=== PATIENT | male | born 1945 | race Caucasian/White ===

== ENCOUNTER 2019-11-16 22:36 | Inpatient (IN) | payer MEDICARE, OTHER, SELFPAY ==
[2019-11-16 22:36] VITALS: BP 134/79; PULSE 63; RESP 24; TEMP 36.4; O2SAT 92; BMI 30.3
[2019-11-16 22:39] VITALS: BP 147/68; PULSE 63; RESP 13; TEMP 36.4; O2SAT 90
--- NOTE | 2019-11-16 22:40 | CT_ITS ---
We are attempting to reach an attending provider to discuss findings. An addendum with communication details will be sent when the communication is complete. HISTORY: nonverbal x 1 hour, pt has been confused and hallucinations x 2 days per [facility] ADDITIONAL HISTORY: None provided. COMPARISON: None TECHNIQUE: Axial, coronal and sagittal CT images were obtained of the brain without intravenous contrast. Number of images including paperwork: 272. A radiation dose optimization technique was used for this scan. FINDINGS: BRAIN: No acute hemorrhage or mass. No definite acute infarct; MRI more sensitive. White matter hypodensity is nonspecific but most commonly seen with chronic ischemic changes. Generalized atrophy. VENTRICULAR SYSTEM: No hydrocephalus. PARANASAL SINUSES AND MASTOIDS: Mild mucosal thickening. Complete opacification of the left maxillary sinus. Some fluid is noted in the left mastoid air cells without destructive changes. ORBITS: Unremarkable imaged extent. SKELETON AND SOFT TISSUES: Calvarium intact. ASPECTS score: Not applicable. CT/Brain/Head without Contrast IMPRESSION: No acute intracranial abnormality. Chronic involutional and white matter changes. Individualized dose optimization techniques were used for this CT. at 2300 Reported and signed by: Kelsey Walter MD Electronically Signed: Kelsey Walter MD at 23:00 EDT Tel , Service support ,
[2019-11-16 22:54] VITALS: BP 134/79; PULSE 58; RESP 23; TEMP 36.4; O2SAT 95
[2019-11-16 22:59] VITALS: BMI 30.3
--- NOTE | 2019-11-16 23:10 | RAD_ITS ---
HISTORY: pt having increased confusion, hallucinations, weakness. jail noticed 2 days ago.sob ADDITIONAL HISTORY: None provided. TECHNIQUE: Frontal chest radiograph. Number of images including paperwork: 2 COMPARISON: None FINDINGS: LUNGS AND PLEURA: Hazy bilateral opacities with blunting of the costophrenic angle. CARDIAC SILHOUETTE: Moderately enlarged. MEDIASTINUM AND STEFAN: Aortic calcification and tortuosity. UPPER ABDOMEN: Unremarkable. SKELETON AND SOFT TISSUES: No acute findings. Degenerative changes. OTHER DEVICES AND HARDWARE: Sternal wires and surgical clips. RAD/Chest 1 View (Portable) IMPRESSION: Bilateral pleural effusions. Bilateral pulmonary opacities may be related to asymmetric edema, pneumonia and/or atelectasis. at 0010 Reported and signed by: Kelsey Walter MD Electronically Signed: Kelsey Walter MD at 0:10 EDT Tel , Service support ,
--- NOTE | 2019-11-16 23:10 | EKG12_ITS ---
Test Reason : DYSRHYTHMIA Blood Pressure : / mmHG Vent. Rate : 057 BPM Atrial Rate : 057 BPM P-R Int : 168 ms QRS Dur : 106 ms QT Int : 472 ms P-R-T Axes : 045 -07 079 degrees QTc Int : 459 ms Sinus bradycardia with Premature supraventricular complexes Nonspecific ST abnormality Abnormal ECG Confirmed by FAUSTO BALDWIN, MARTHA ([id number]), graphics editor JESUS YIN ([id number]) on 11/18/2019 10:05:02 AM Referred By: AUGUSTIN Confirmed By:MARTHA LAMBERT MD
--- NOTE | 2019-11-16 23:12 | ED.DCSUM_ITS ---
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 stated he woke up from his sleep this evening and the snf noted that he was significantly altered and unable to have a conversation. EMS stated the patient could answer yes and no and nod and shake his head but did not want to do much otherwise. They stated he barely flinch when they placed his IV. He has a history of atrial fibrillation. He is not on a blood thinner at this time. Initial stroke team was called prior to EMS coming in for reported a aphasia. It is actually not a aphasia but the patient has confusion and altered mental status. Stated she is unsure but does not think there is any coronavirus exposure at the snf. She denies any fevers. Patient has initially coughed a couple times during initial evaluation. Patient is unable to give a history due to his mental status. Past Medical History - Allergies and Home Meds Allergies/Adverse Reactions: Allergies No Known Allergies Allergy (Verified 11/16/19 22:55) Prior records reviewed: Yes Past Medical History: - - Atrial fibrillation Surgical History: - - Knee surgery Lives: [facility] Smoking Status: Unknown if ever smoked Alcohol: None Drugs: None - Family History Maternal Family History: Reports: Heart Disease Paternal Family History: Reports: - - Per patient's , patient father lived to be 96. Review of Systems ROS: Unable to Obtain - Unable to obtain secondary to patient's mental status Physical Exam Vital Signs/Narrative: Vital Signs Temp Pulse Resp BP Pulse Ox 11/16/19 22:54 97.6 F L 58 L 23 H 134/79 H 95 11/16/19 22:39 97.5 F L 63 13 147/68 H 90 11/16/19 22:36 97.6 F L 63 24 H 134/79 H 92 Inital Vital Signs reviewed: Yes - Fever General: - - Patient is laying in bed with a nonrebreather mask. He can nod and shake his head and follow commands. He cannot talk words Head: Normocephalic, Atraumatic Eyes: Perrl, EOMI, - - 4 to 3 mm bilateral ENT: No rhinorrhea, TM's clear, Dry mucous membranes. Negative for: Moist mucous membranes, Nasal congestion Neck: Supple, Nontender Cardiovascular: Regular rate, Regular rhythm, No murmurs Respiratory: CTA bilaterally, Chest nontender, - - Patient bringing breathing into a nonrebreather. Negative for: No distress, Rales, Rhonchi, Wheezing, Re tractions Abdomen: Soft, Nontender, Nondistended, Normal bowel sounds. Negative for: Guarding Back: Nontender, Normal Inspection Extremities: Nontender, Edema - 2+ lower extremity edema bilateral which EMS reports that the snf stated is chronic, - - Patient able to lift his bilateral arms but weak. Bilateral paperhanger assistant strength noted. Sometimes he will comply sometimes he does not. Patient able to move his right lower extremity and lifted off the bed for a few seconds and then falls. Patient able to push down with his toes and pull back his toes with his left foot. Patient unable to lift his left leg.. Negative for: No edema Skin: Normal color, No rash Neurological: Alert, Normal DTR, Confused, Disoriented, Inattentive, Lethargic. Negative for: Oriented x3, Cranial nerves II-XII grossly intact, Normal Strength, Normal Sensation, Left side facial droop, Right side facial droop Psychological: Normal affect, Normal Mood Diagnostic/Tx/Re-eval - Medical Decision Making Patient initial evaluation. He is able to move all his extremities. He is able to squeeze my hands. He is able to answer my questions with yes or no. Work stated he is a DNR Comfort Care arrest. He stated he would not want to be intubated when I asked him. His reiterated that he would not want to be put on a breathing machine. Pulse ox is in the mid 90s on a nonrebreather. He has not mild cough in the room. He appears incredibly weak. I do not appreciate any focal neurologic deficits. He is able to smile. He is able to close his eyes. He just cannot have a conversation with me secondary to an inability to do so. He tries to talk and is able to say yes and no. His mouth is very dry. Patient's initial CAT scan upon arrival shows nothing acute. Lab work and chest x-ray obtained. Lab work shows no leukocytosis but no neutrophilia. Chronic anemia noted. Electrolytes show a mild increase in his sodium. Creatinine is normal. Lactate is normal. Urinalysis shows no evidence of infection. This was done with a Guaman catheter. Chest x-ray shows bilateral asymmetric infiltrates. I feel this may be COVID related. Patient given ceftriaxone and azithromycin for possible bilateral pneumonia. However she reported no history of cough or breathing difficulty. The patient may have encephalitis secondary to COVID. Also given a dose of Lasix IV as this could be CHF related. However I have more suspicion due to the asymptomatic asymmetry that this is COVID. Opponent is negative. EKG shows atrial fibrillation at a rate of 57. Patient was transferred to the [facility]. He remains his saturations in the mid 90s. Discussed with the hospitalist. Patient will be admitted for further evaluation and treatment of the above. Discussed with [facility] who also authorized the COVID test. I have a low suspicion for acute stroke. However the patient does have diffuse weakness worse in the left lower extremity. Patient is on Eliquis not a candidate for TPA as we do not know the time window as well. - Critical Care Time Critical care time (excluding procedures): 30-74 minutes ED Disposition - Plan for ED Patient: Disposition: Acute Care Hospital [facility] Diagnosis: Lethargy, Bilateral pulmonary infiltrates on chest x-ray, Suspected COVID-19 virus infection, Respiratory failure, Lower extremity weakness
[2019-11-16 23:17] VITALS: BP 141/85; PULSE 66; RESP 19; O2SAT 98
[2019-11-16 23:21] VITALS: BP 141/85; PULSE 65; RESP 25; TEMP 36.6; O2SAT 98
--- NOTE | 2019-11-16 23:23 | NURSING ---
after arriaza insertion
[2019-11-16 23:32] LABS: Bacteria 0 SEEN /hpf (None Seen); Mucous, Urine 0 SEEN /hpf (<or=2+); White Blood Cells 0 SEEN /hpf (0-5)
[2019-11-16 23:36] LABS: Color, Urine Yellow (Yellow); Glucose, Dipstick Normal (Normal); Ketone-Dipstick 5 mg/dl (Negative); Leukocyte Esterase-Dipstick Negative /ul (Negative); Nitrite-Dipstick Negative (Negative); Occult Blood-Urine 150 /ul (Negative); Protein-Dipstick 15 mg/dl (Negative); Specific Gravity, Urine 1.015 (1.002-1.030); Urine Bilirubin Dipstick Negative (Negative); Urine Clarity Sl. Cloudy (Clear); Urine Urobilinogen 1 mg/dl (Normal)
[2019-11-16 23:42] VITALS: TEMP 36.9
[2019-11-16 23:44] LABS: Red Blood Cells-Urine 25-50 SEEN /hpf (0-5); Squamous Epithelial Cells - UA 0-5 SEEN /hpf (0-5)
[2019-11-16 23:50] LABS: Absolute Neutrophil Count 5.8 X10^3/uL (2.0-7.7); Basophil# 0.03 X10^3/uL; Basophil% 0.4 % (0-1); Eosinophil# 0.05 X10^3/uL; Eosinophils% 0.7 % (0-5); Hematocrit 30.7 % (40-54); Hemoglobin 9.5 g/dL (13.0-16.5); Mean Corp Hgb Conc 30.9 g/dL (32-36); Mean Corpuscular Volume 96.8 fL (80-94); Mean Platelet Vol. 9.8 fl (6.2-12.0); Monocyte# 0.63 X10^3/uL; Monocyte% 8.9 % (0-10); NRBC Flagged by Analyzer 0 % (0-5); Neutrophil # 5.78 X10^3/uL (2.7-7.7); Neutrophil % 81.5 % (47-70); POSITIVE DIFFERENTIAL YES; Platelet Count 239 K/mm3 (150-450); RBC Distribution Width CV 14.9 % (11.6-14.6); RBC Distribution Width SD 52.8 fl (35.1-43.9); Red Blood Count 3.17 M/mm3 (4.6-6.2); White Blood Count 7.1 K/mm3 (4.4-11.0)
[2019-11-16 23:56] LABS: Differential Indicated SCAN CRITERIA MET
[2019-11-16 23:59] LABS: International Normalized Ratio 1.4; Prothrombin Time (Protime)PT. 16.9 SECONDS (11.7-14.9)
[2019-11-17] VITALS (21 sets, daily range): BP systolic 109–164; BP diastolic 61–98; PULSE 40–96; RESP 15–25; TEMP 36.4–37; O2SAT 94–99; BMI 29.7
[2019-11-17] LABS: Partial Thromboplast Time 39.8 Seconds (24.1-36.2)
[2019-11-17 00:03] LABS: Lactic Acid 0.8 mmol/L (0.4-1.9)
--- NOTE | 2019-11-17 00:11 | NURSING ---
stroke alert cancelled by
[2019-11-17 00:13] LABS: ALB/GLOB Ratio 0.7 RATIO (0.9-2.4); AST(SGOT) 28 U/L (15-37); Alanine Aminotransfer ALT/SGPT 17 U/L (16-61); Albumin, Serum 2.6 g/dL (3.2-5.0); Alkaline Phosphatase 62 U/L (45-117); Anion Gap 7 (5-15); BUN 29 mg/dL (7-18); BUN/Creat Ratio 24.4 RATIO (10-20); Calcium,Total 8.2 mg/dL (8.5-10.1); Chloride 114 mmol/L (98-107); Creatinine, Serum 1.19 mg/dL (0.70-1.30); EST Glomerular Filtration Rate 63 mL/min (>60); Est Glom Filt Rate - Afr Amer 76 mL/min (>60); Estimated Creatinine Clearance 56.25 ml/min; Globulin 3.6 g/dL (2.2-4.2); Glucose 76 mg/dL (74-106); Potassium 3.8 mmol/L (3.5-5.1); Protein, Total 6.2 g/dL (6.4-8.2); Sodium Level 147 mmol/L (136-145)
[2019-11-17 00:23] LABS: Platelet Estimate ADEQUATE (ADEQ)
[2019-11-17 00:24] LABS: Hypochromasia 1+
--- NOTE | 2019-11-17 00:26 | PCM.HP.STD ---
Problem List (1) Acute encephalopathy Status: Acute (2) Bilateral pulmonary infiltrates on chest x-ray Status: Acute (3) Lethargy Status: Acute (4) Respiratory failure Status: Acute (5) Suspected COVID-19 virus infection Status: Acute History of Present Illness Date of Admission: 11/17/19 Chief Complaint: Lethargy The patient is a 74 year old M with a significant history of Heart failure, CAD status post quadruple bypass who lives in a prison presenting because of lethargy that started on the same day of presentation. Associated with his symptoms is progressively worsening hallucinations. Reportedly patient had been 'seeing' snakes. His hallucinations started around June in 2018. Patient was brought from an [facility] prison. He was brought to [facility] because paramedics thought the patient was having a stroke. Stroke alert was called but later canceled by emergency department doctor as emergent department doctor could not see any focal deficits. Chest x-ray showed bilateral pulmonary opacity and bilateral pleural effusion raising suspicion for COVID-19 and for which reason COVID-19 test was ordered at the emergency department. Reportedly at a prison his oxygen saturation was 80% on room air but he responded to nonrebreather mask. At the emergency department patient required a Venturi mask to maintain appropriate oxygen saturation. History was taken from Emergency department doctor and patient's (over the phone) since patient was obtunded. Past Medical History Medical History: Medical History (Last Updated 11/17/19 @ 03:[address] Yandel Osborne MD) Atrial fibrillation I48.91 Systolic heart failure I50.20 Allergies No Known Allergies Allergy (Verified 11/16/19 22:55) Home Medications: Ambulatory Orders Medication Instructions Recorded Aripiprazole [Abilify] 5 mg PO DAILY 11/16/19 Ascorbic Acid 500 mg PO DAILY 11/16/19 Aspirin [Aspirin, Baby] 81 mg PO DAILY@0800 11/16/19 Carvedilol [Coreg] 12.5 mg PO BID 11/16/19 Fenofibrate 67 mg PO DAILY 11/16/19 Ferrous Sulfate 325 mg PO DAILY 11/16/19 Furosemide 40 mg PO DAILY 11/16/19 Glimepiride 1 mg PO DAILY 11/16/19 Levothyroxine [Synthroid] 75 mcg PO DAILY 11/16/19 Lisinopril [Zestril] 10 mg PO DAILY 11/16/19 Loratadine/Pseudoephedrine 1 ea PO PRN PRN 11/16/19 [Claritin-D 24 Hour Tablet] Magnesium l-Lactate [Magnesium 84 mg PO 4X/DAY 11/16/19 l-Lactate Dihyd Sr] Multivitamin [Once Daily] 1 ea PO DAILY 11/16/19 Niacin 1,000 mg PO DAILY 11/16/19 Oxybutynin Chloride 40 mg PO DAILY 11/16/19 Potassium Chloride 40 meq PO BID 11/16/19 Rivaroxaban [Xarelto] 15 mg PO DAILY 11/16/19 Sennosides/Docusate Sodium [Senna 1 ea PO BID 11/16/19 Plus Tablet] Sertraline HCl [Zoloft] 100 mg PO DAILY 11/16/19 Sotalol HCl [Sotalol] 80 mg PO BID 11/16/19 Tramadol HCl 50 mg PO Q6H PRN PRN 11/16/19 hydrALAZINE [Apresoline] 100 mg PO BID 11/16/19 Surgical History: coronary bypass surgery, - - Knee surgery Lives: Skilled Nursing Smoking Status: Former smoker Alcohol: Occasional Drugs: None - *Family History Maternal History Items: Heart Disease Paternal History Items: - - Per patient's , patient father lived to be 96. Review of Systems Unable to obtain accurate/complete ROS d/t: Obtunded. Information obtained from is as in HPI. VTE Information - Inpt Only VTE Present on Admission: No VTE Mechan Device Prophylaxis: None VTE Pharm Prophylaxis ordered?: No Reason prophylaxis not ordered:: Treatment Not Indicated - On Xarelto at home for A. fib. Patient has been started on Lovenox for A. fib. Patient Problems: Active and Suspected Problems (Last Updated 11/17/19 @ 03:[address] Yandel Osborne MD) Lethargy (Acute) Bilateral pulmonary infiltrates on chest x-ray (Acute) Suspected COVID-19 virus infection (Acute) Respiratory failure (Acute) Acute encephalopathy (Acute) Lower extremity weakness (Acute) - Physical Exam Vitals/I&O's: Vital Signs Temp Pulse Resp BP Pulse Ox 98.5 F 66 23 H 164/80 H 98 11/17/19 00:03 11/17/19 00:03 11/17/19 00:03 11/17/19 00:03 11/17/19 00:03 Oxygen Flow Rate (L/min) 8 Oxygen Delivery Method Venturi Mask Weight: 98.7 kg Body Mass Index (BMI) 30.3 Finger Stick Blood Glucose 70 Intake and Output for Last 24 Hours 11/15/19 11/16/19 11/17/19 23:59 23:59 23:59 Output Total Balance - General: - - Obtunded HEENT: Atraumatic, Normocephalic Neck: Supple Lungs: Diminished Cardiovascular: Normal S1, Normal S2, No murmurs, Bradycardic Abdomen: Bowel Sounds Present, Soft, Non Tender Extremities: Edema - Nonpitting edema of bilateral forearms. Skin: No rashes, No breakdown Musculoskeletal: No Tenderness to Palpation of Joints or Extremities Neurological: - - Not following commands to raise left lower extremities fully. Strength in all other extremities is 5 out of 5. Unable to evaluate strength in left lower extremities. Psych/Mental Status: - - Obtunded Laboratory Results 11/16/19 23:17: Urine Color Yellow, Urine Clarity Sl. Cloudy, Urine pH 6.0, Ur Specific [place] 1.015, Urine Protein 15 H, Urine Glucose (UA) Normal, Urine Ketones 5 H, Urine Occult Blood 150 H, Urine Nitrite Negative, Urine Bilirubin Negative, Urine Urobilinogen 1 H, Ur Leukocyte Esterase Negative, Urine RBC 25-50 SEEN, Urine WBC 0 SEEN, Ur Squamous Epith Cells 0-5 SEEN, Urine Bacteria 0 SEEN, Urine Mucus 0 SEEN 11/16/19 23:30: Sodium 147 H, Potassium 3.8, Chloride 114 H, Carbon Dioxide 26.0, Anion Gap 7, BUN 29 H, Creatinine 1.19, Estim Creat Clear Calc 56.25, Est GFR (MDRD) Af Amer 76, Est GFR (MDRD) Non-Af 63, BUN/Creatinine Ratio 24.4 H, Glucose 76, Calcium 8.2 L, Total Bilirubin 0.60, AST 28, ALT 17, Alkaline Phosphatase 62, Troponin I 0.030, Total Protein 6.2 L, Albumin 2.6 L, Globulin 3.6, Albumin/Globulin Ratio 0.7 L 11/16/19 23:30: WBC 7.1, RBC 3.17 L, Hgb 9.5 L, Hct 30.7 L, MCV 96.8 H, MCH 30.0, MCHC 30.9 L, RDW Std Deviation 52.8 H, RDW Coeff of [place] 14.9 H, Plt Count 239, MPV 9.8, Immature Gran % (Auto) 1.500 H, Neut % (Auto) 81.5 H, Lymph % (Auto) 7.0 L, [place] % (Auto) 8.9, Eos % (Auto) 0.7, Baso % (Auto) 0.4, Absolute Neuts (auto) 5.8, Absolute Lymphs (auto) 0.50 L, Nucleated RBC % 0, Differential Comment COMMENT, Platelet Estimate ADEQUATE, Hypochromasia 1+ 11/16/19 23:30: PT 16.9 H, INR 1.4, APTT 39.8 H 11/16/19 23:30: Lactic Acid 0.8 11/16/19 23:35: COVID-19 (AFUA) Pending 11/17/19 00:00: B-Natriuretic Peptide Pending Assessment/Plan All Active Problems (Last Updated 11/17/19 @ 03:[address] Yandel Osborne MD) Lethargy (Acute) Bilateral pulmonary infiltrates on chest x-ray (Acute) Suspected COVID-19 virus infection (Acute) Respiratory failure (Acute) Acute encephalopathy (Acute) Lower extremity weakness (Acute) The patient is a 74 year old M with a significant history of Heart failure, CAD status post quadruple bypass who lives in a prison presenting because of lethargy and progressively worsening hallucination and found to have bilateral pulmonary infiltrates. Acute encephalopathy Etiology unclear. We will get vitamin B12 level; TSH and RPR. Per Emergent department doctor patient was answering yes or no questions. At the time of my examination patient was not answering questions. Followed commands of raising all extremities. However he was not raising his left lower leg upon multiple commands. CT of his head showed chronic involutional and white matter changes. We will get MRI of his brain. In the meantime will give him aspirin by rectal route. We will check lipid levels. Placed on telemetry. Physical therapy, occupational therapy and speech therapy to evaluate and treat. NIH per stroke protocol. Permissive hypertension with labetalol and hydralazine to maintain blood pressure 220/120. Bilateral infiltrates BNP was elevated at 889.2.. Received Lasix IV push at emergency department. At home patient gets p.o. Lasix. We will continue patient on Lasix 40 mg IV twice daily. Supplement with potassium. Noted bandemia of 1.5%. Was given azithromycin at emergency department. Azithromycin continued. Trend CBC and BMP. Follow blood cultures. Strep pneumonia antigen and Legionella urine antigen ordered. MRSA nasal screen. COVID-19 suspicion Compress respiratory pathogen panel and COVID-19 was ordered at emergency department. Follow. Covid precautions. Reportedly at a prison where patient lives there are no cases of COVID -19 and the prison is on lock-down History of atrial fibrillation On home Xarelto. Hold all oral medications. Will start patient on therapeutic dose of Lovenox. Sotalol on hold at this time. Patient is in sinus bradycardia. History of systolic heart failure No echocardiogram on file. Coreg, lisinopril on hold secondary to n.p.o. status; and permissive hypertension. CAD status post CABG Rectal aspirin as above. Coreg, and lisinopril held as above. Anticoagulation as above. History of diabetes mellitus On home glimepiride. On presentation his blood glucose was in the 70s. Hold glimepiride. Check Accu-Chek every 4 hours. Put on D5 in half-normal saline with potassium. Microscopic hematuria. Probable traumatic from Guaman insertion at emergency department. Due to goals of care no further intervention may be necessary at this time. DVT prophylaxis Not indicated since patient has been started on therapeutic dose of Lovenox for history of A. fib. CODE STATUS: Discussed with . Patient will be a DNR CCA with no chest compressions and no intubation. Prognosis is grim. Inpatient E&M: [id number] Init Hosp L3
[2019-11-17] MEDS: Furosemide 40 MG/4 ML Vial IV ×3 (00:35→17:03)
[2019-11-17 00:36] LABS: Bedside Glucose 70 mg/dL (70-110)
--- NOTE | 2019-11-17 00:36 | ED.RN ---
THIS RN SPOKE WITH CLINT FROM [facility] AND GAVE THAT CAREGIVER UPDATE THAT PATIENT WOULD BE ADMITTED TO OUR FACILITY.
[2019-11-17 00:41] LABS: Bedside Glucose 77 mg/dL (70-110)
[2019-11-17] MEDS: Ceftriaxone 1 GM/50 ML BAG IV ×2 (00:52→02:38)
[2019-11-17 01:08] LABS: BNP,B-Type NATRIURETIC PEPTIDE 889.2 pg/mL (0-100)
--- NOTE | 2019-11-17 01:48 | MRI_ITS ---
STUDY: MRI BRAIN WITHOUT CONTRAST REASON FOR EXAM: Male, 74 years old. CVA -- lethargic, respiratory failure, suspected covid TECHNIQUE: Standardized multiplanar fat and water weighted pulse sequences were obtained. COMPARISON: CT head without contrast 11/16/2019. FINDINGS: No restricted diffusion to suspect acute or subacute ischemic infarct. Normal size of the ventricles and extra-axial spaces for the patient''s age. Old lacunar cystic infarct in the right periventricular white matter. Old lacunar cystic infarct in the right caudate head nucleus. No midline shift and no mass effects. Normal remaining basal ganglia. Normal thalami. There is no extra-axial fluid accumulation. Normal flow voids within the major intracranial circulation suggesting patency by spin echo criteria. Normal sella turcica, pituitary gland, infundibular stalk, optic chiasm and hypothalamus. Normal tectal plate and pineal gland. Normal midbrain, ceci and medulla. Normal cerebellum. Normal basal cisterns. Normal bilateral temporal bones. Normal bilateral internal auditory canals. No demonstrated orbital abnormality, within the constraints of a routine brain study. Completely opacified left mastoid sinus from chronic sinusitis. Normal calvarium and skull base. Normal visualized soft tissue structures. Normal visualized upper cervical spine. MRI/Brain without Contrast IMPRESSION: 1. No MRI evidence of acute or subacute ischemic infarct. 2. 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 3. Chronic left maxillary sinusitis. Electronically Signed: Buddy Colón MD at 14:14 EDT , Service support ,
[2019-11-17] MEDS: Potassium Chloride 40 MEQ in Dext 5%-0.45% NS 1,000 ML 50 MEQ IV (02:37)
[2019-11-17 03:06] LABS: Bedside Glucose 108 mg/dL (70-110)
[2019-11-17 05:02] LABS: M R Staph aureus DNA By PCR Negative (Negative); Probe Check PASS; Specimen Processing Control PASS
--- NOTE | 2019-11-17 06:49 | MRI_ITS ---
STUDY: MRA OF THE HEAD WITHOUT CONTRAST REASON FOR EXAM: Male, 74 years old. cva -- lethargic, respiratory failure, suspected covid TECHNIQUE: 3-D [id number] (TOF) imaging was performed with MIPs. The study was performed unenhanced. COMPARISON: None. FINDINGS: Normal bilateral petrous carotid arteries. Normal right cavernous carotid artery with a normal supraclinoid bifurcation. Normal left cavernous carotid artery with a normal supraclinoid bifurcation. Normal right A1 segment of the anterior cerebral artery. Normal left A1 segment of the anterior cerebral artery. Normal intact anterior communicating artery (ACOM). Normal bilateral A2 segments of the anterior cerebral arteries. Normal right M1 and M2 segments of the middle cerebral arteries, with a normal M1 bifurcation. Normal left M1 and M2 segments of the middle cerebral arteries, with a normal M1 bifurcation. No visible right posterior communicating artery (PCOM). No visible left posterior communicating artery (PCOM). Normal bilateral vertebral arteries. Normal basilar artery with a normal basilar bifurcation. The visualized bilateral superior cerebellar (SCA) arteries are normal. Normal bilateral P1, P2 and visualized P3 segments of the posterior cerebral arteries. There is no demonstrated aneurysm of the [place]. There is no major vessel occlusion or hemodynamically significant stenosis. There is no demonstrated abnormality of the visualized brain. MRI/MRA Head ONLY without Contrast IMPRESSION: Limited MRA of the head due to motion degradation artifacts. No suspicious significant vaso-occlusive disease of the anterior and posterior circulation. Electronically Signed: Buddy Colón MD at 14:15 EDT , Service support ,
--- NOTE | 2019-11-17 06:52 | ECHOD_ITS ---
Reason For Study: ARRHYTHMIA Procedure This was a 2D Doppler, Color Flow transthoracic echocardiogram. The study was technically difficult. Exam performed portable in patient room. Left Ventricle Normal size and thickness. The estimated ejection fraction is 55 %. Unable to assess diastolic dysfunction due to arrhythmia. Mid-Anterior : Mildly hypokinetic. Right Ventricle Normal size and thickness. Normal systolic function. Atria The left atrium is severely enlarged. The right atrium is moderately enlarged. Normal atrial septum. Mitral Valve Mild diffuse mitral valve thickening. Moderate mitral annular calcification extending into the posterior leaflet. Tricuspid Valve Normal tricuspid valve. Mild (1+) tricuspid valve insufficiency. Right ventricular systolic pressure estimated to be 37 mmHg. Mild pulmonary hypertension. Aortic Valve Trisinus/trileaflet aortic valve. Mild diffuse aortic valve thickening. Pulmonic Valve Normal pulmonic valve. Great Vessels Normal aortic root. Normal arch. Normal inferior vena cava. Inferior vena cava collapse with sniff. Pericardium/Pleural No pericardial effusion. MMode/2D Measurements & Calculations LVIDd: 5.1 cm IVSd: 1.1 cm Ao root diam: 3.3 cm LVIDs: 3.5 cm LVPWd: 1.0 cm LA dimension: 3.9 cm RVDd: 3.3 cm FS: 31.3 % LAV(MOD-bp): 95.0 ml LA A4 area: 26.5 cm2 RA A4 area: 21.4 cm2 LAV(MOD-bp) Indexed: 44.0 ml/m2 LAV(MOD-sp2): 98.4 ml LAV(MOD-sp4): 94.4 ml Doppler Measurements & Calculations MV E max randy: 85.3 cm/sec Ao V2 max: 91.7 cm/sec LV V1 max: 70.0 cm/sec Ao max P.4 mmHg LV V1 max P.0 mmHg TR max randy: 234.0 cm/sec TR max P.0 mmHg Interpretation Summary The estimated ejection fraction is 55 %. Unable to assess diastolic dysfunction due to arrhythmia. Mid-Anterior : Mildly hypokinetic The left atrium is severely enlarged. The right atrium is moderately enlarged. Mild (1+) tricuspid valve insufficiency. Right ventricular systolic pressure estimated to be 37 mmHg. Mild pulmonary hypertension. Pt appears to be in atrial fibrillation. There is no comparison study available. Ordering Physician: Marbella Jaimes Referring Physician: Mike Monique Performed By: Zakia Cabrales, MAKAYLA, RVT
--- NOTE | 2019-11-17 07:06 | PCM.PN.HOSP ---
Patient Problems: Active and Suspected Problems (Last Updated 11/17/19 @ 03:[address] Yandel Osborne MD) Lethargy (Acute) Bilateral pulmonary infiltrates on chest x-ray (Acute) Suspected COVID-19 virus infection (Acute) Respiratory failure (Acute) Acute encephalopathy (Acute) Lower extremity weakness (Acute) Subjective: The patient is a 74 y/o M w/ PMHx: HTN, HLD, PAF on xarelto, Systolic CHF, Hypothyroidism, Fe Deficiency anemia, Anxiety and Depression, Former Tobacco use who presents to the [facility] ED on 11[facility]17[facility] secondary to extreme encephalopathy and respiratory failure with hallucinations. Admitted secondary to Acute Encephalopathy, Likely Multifactorial, secondary to Acute Hypoxic Respiratory Failure with Bilateral Effusions with ? Bilateral Pneumonia with possible HCAP versus Acute Viral Syndrome, COVID-19 versus Acute CVA versus Acute Systolic CHF Exacerbation: Will maintain on the COVID unit given DNR-CCA, no intubation status, given severity of appearance requested. Dr. Kang consultation, maintain on VM with wean as tolerated to room air, continue PRN albuterol, transition to IV Vanc and Zosyn w/ pending MRSA screen, HOB, IS parameters w/ requested sputum cultures, urine antigens, procalcitonin, CRP, Ferritin, LDH, cycle cardiac enzymes, repeat EKG in AM, obtain ECHO, obtain MRI Brain, MRA Head and Neck once respiratory status improved or stable; however, if unable to wean off Ventimask then would necessitate hold until improvement, PT/OT/Speech/Nutrition evaluation per protocol. Maintain on MS ASA, unsafe oral intake currently. Maintain on fall and aspiration precautions. Maintained on IV lasix. Mag, TSH/FT4 pending. Will continue supportive care, closely monitor for worsening status for ARDS and multiorgan failure, COVID requested. UA not marked appearing. Transition from home Xarelto to heparin drip given unsafe oral intake. Bld cx x 2 obtained in the ED. Patient symptoms presentation with ongoing Ventimask usage, course and moist upper airway sounds with discussion with RT and hadoop administrator with evaluation with continued recommendation of current course with broadened antibiotic therapy, head of bed, aspiration precautions, continue stroke evaluation, continue COVID evaluation, plan best if able to tolerate as well as aggressive airway suctioning. Patient remains lethargic and confused, not oriented. Patient with no obvious fevers, chills, nausea, emesis, abdominal pain, chest pain. Objective: Physical Examination: General: Awakens to stimuli but not alert and unable to answer orientation questions, difficulty managing airway secretions noted, head of bed up, fatigued and ill-appearing, ongoing Ventimask usage with mild increased work of breathing. Skin: normal color, turgor, no icterus, cyanosis except occasional very staged ecchymoses. HEENT: AT/NC, EOM unable to be assessed well given lethargy, PERRLA, dry MM, extremely rhonchorous, diminished, moist upper airway sounds, mild increased work of breathing, maintained on Ventimask currently. Lungs: CTA bilaterally, moderate effort, mild decrease BL bases, no rales, ronchi or wheezing. Heart: Regular rate and rhythm; no gallop, rub audible. Abdomen: soft, overweight, NTTP, ND, mildly hyperactive BS. Extremities: no cyanosis, clubbing. Neurological: Awakens to stimuli but not alert and unable to answer orientation questions, difficulty managing airway secretions noted, head of bed up, fatigued and ill-appearing, ongoing Ventimask usage with mild increased work of breathing; cognitive function not baseline intact; pupils equally reactive to light and accomodation; cranial nerves difficult to assess given lethargy, moving extremities to stimuli, strength severely global decreased. Psychiatric: affect appears lethargic, ill, no acute evidence of depressive or anxiety feelings. Vitals/I&O's: Vital Signs Temp Pulse Resp BP Pulse Ox 97.7 F L 55 L 17 125/74 H 94 11/17/19 06:00 11/17/19 06:00 11/17/19 06:00 11/17/19 06:00 11/17/19 06:00 Oxygen Flow Rate (L/min) 8 Oxygen Delivery Method Venturi Mask Weight: 212 lb 11.937 oz Body Mass Index (BMI) 29.7 Finger Stick Blood Glucose 77 Intake and Output for Last 24 Hours 11/15/19 11/16/19 11/17/19 23:59 23:59 23:59 Intake Total 355 / 355 Output Total 1400 / 1400 Balance -25 / -25 -1045 / -1045 Microbiology Past 72 Hours 11/16/19 23:17 Urine, Clean Catch Legionella Antigen - Final 11/16/19 23:17 Urine, Clean Catch Streptococcus pneumoniae Antigen (M - Final 11/16/19 23:35 Mucosa - Nasopharyngeal Respiratory Panel (PCR) - Final Laboratory Results 11/16/19 23:17: Urine Color Yellow, Urine Clarity Sl. Cloudy, Urine pH 6.0, Ur Specific [place] 1.015, Urine Protein 15 H, Urine Glucose (UA) Normal, Urine Ketones 5 H, Urine Occult Blood 150 H, Urine Nitrite Negative, Urine Bilirubin Negative, Urine Urobilinogen 1 H, Ur Leukocyte Esterase Negative, Urine RBC 25-50 SEEN, Urine WBC 0 SEEN, Ur Squamous Epith Cells 0-5 SEEN, Urine Bacteria 0 SEEN, Urine Mucus 0 SEEN 11/16/19 23:20: POC Glucose 70 11/16/19 23:30: Sodium 147 H, Potassium 3.8, Chloride 114 H, Carbon Dioxide 26.0, Anion Gap 7, BUN 29 H, Creatinine 1.19, Estim Creat Clear Calc 56.25, Est GFR (MDRD) Af Amer 76, Est GFR (MDRD) Non-Af 63, BUN/Creatinine Ratio 24.4 H, Glucose 76, Calcium 8.2 L, Total Bilirubin 0.60, AST 28, ALT 17, Alkaline Phosphatase 62, Troponin I 0.030, Total Protein 6.2 L, Albumin 2.6 L, Globulin 3.6, Albumin/Globulin Ratio 0.7 L 11/16/19 23:30: WBC 7.1, RBC 3.17 L, Hgb 9.5 L, Hct 30.7 L, MCV 96.8 H, MCH 30.0, MCHC 30.9 L, RDW Std Deviation 52.8 H, RDW Coeff of Monica 14.9 H, Plt Count 239, MPV 9.8, Immature Gran % (Auto) 1.500 H, Neut % (Auto) 81.5 H, Lymph % (Auto) 7.0 L, [place] % (Auto) 8.9, Eos % (Auto) 0.7, Baso % (Auto) 0.4, Absolute Neuts (auto) 5.8, Absolute Lymphs (auto) 0.50 L, Nucleated RBC % 0, Differential Comment COMMENT, Platelet Estimate ADEQUATE, Hypochromasia 1+ 11/16/19 23:30: PT 16.9 H, INR 1.4, APTT 39.8 H 11/16/19 23:30: Lactic Acid 0.8 11/16/19 23:35: COVID-19 (AFUA) Pending 11/17/19 00:00: B-Natriuretic Peptide 889.2 H 11/17/19 00:37: POC Glucose 77 11/17/19 02:43: POC Glucose 108 11/17/19 02:52: MRSA (PCR) Negative Current Medications Albuterol Sulfate (Ventolin Aerosols) 2.5 mg INHALATION Q2H PRN PRN PRN Reason: Dyspnea, wheezing Albuterol/Ipratropium (Duoneb) 3 ml INHALATION Q4HWA.RT [facility] Aspirin (Aspirin) 300 mg RECTAL DAILY [facility] Dextrose (D50w Syringe) 0 gm IV X1 PRN; Protocol PRN Reason: Hypoglycemia Furosemide (Lasix) 40 mg IV BID@1000,1800 KASSANDRA Glucagon () 1 mg IM .X1 PRN PRN Reason: Hypoglycemia Heparin Sodium (Porcine) (Heparin Na) 0 unit IV UD PRN; Protocol Hydralazine HCl (Apresoline Iv) 5 mg IV Q30M PRN PRN Reason: to maintain BP goals Sodium Chloride () 250 mls @ 15 mls/hr IV .[id number] PRN PRN Reason: Saline Flush Sodium Chloride () 250 mls @ 15 mls/hr IV .[id number] PRN PRN Reason: Additional IVPB Infusion Potassium Chloride 40 meq/ (Dextrose/Sodium Chloride) 1,020 mls @ 50 mls/hr IV .[id number] [facility] Last Admin: 11/17/19 02:37 Dose: 50 mls/hr Documented by: Heparin Sodium/Dextrose () 25,000 units in 250 mls @ 14 mls/hr IV .[id number] [facility]; Protocol Vancomycin IV Pharmacy to Dose (1 ea/ Sodium Chloride) 500 mls @ 250 mls/hr IV X1 PRN; Protocol PRN Reason: Rx to Dose Piperacillin Sod/Tazobactam (Sod 3.375 gm/ Sodium Chloride) 50 mls @ 12.5 mls/hr IV Q8 KASSANDRA Labetalol HCl (Trandate) 10 - 20 mg IV Q10M PRN PRN PRN Reason: to maintain BP goals Ondansetron HCl (Zofran) 4 mg IV Q8H PRN PRN PRN Reason: NAUSEA/VOMITING Sodium Chloride () 10 - 40 ml IV UD PRN PRN Reason: SALINE FLUSH STROKE Vital Signs/Narrative: Vital Signs Temp Pulse Resp BP Pulse Ox 11/17/19 06:00 97.7 F L 55 L 17 125/74 H 94 Medical Necessity - Tobacco Use Smoking Status: Former smoker Assessment/Plan All Active Problems (Last Updated 11/17/19 @ 03:[address] Yandel Osborne MD) Lethargy (Acute) Bilateral pulmonary infiltrates on chest x-ray (Acute) Suspected COVID-19 virus infection (Acute) Respiratory failure (Acute) Acute encephalopathy (Acute) Lower extremity weakness (Acute) The patient is a 74 y/o M w/ PMHx: HTN, HLD, PAF on xarelto, Systolic CHF, Hypothyroidism, Fe Deficiency anemia, Anxiety and Depression, Former Tobacco use who presents to the [facility] ED on 11/17/19 from [facility] facility secondary to extreme encephalopathy and respiratory failure with hallucinations. 1. Acute Encephalopathy, Likely Multifactorial, secondary to Acute Hypoxic Respiratory Failure with Bilateral Effusions with ? Bilateral Pneumonia with possible HCAP versus Acute Viral Syndrome, COVID-19 versus Acute CVA versus Acute Systolic CHF Exacerbation: Will maintain on the COVID unit given DNR-CCA, no intubation status, given severity of appearance requested. Dr. Kang consultation, maintain on VM with wean as tolerated to room air, continue PRN albuterol, transition to IV Vanc and Zosyn w/ pending MRSA screen, HOB, IS parameters w/ requested sputum cultures, urine antigens, procalcitonin, CRP, Ferritin, LDH, cycle cardiac enzymes, repeat EKG in AM, obtain ECHO, obtain MRI Brain, MRA Head and Neck once respiratory status improved or stable; however, if unable to wean off Ventimask then would necessitate hold until improvement, PT/OT/Speech/Nutrition evaluation per protocol. Maintain on MS ASA, unsafe oral intake currently. Maintain on fall and aspiration precautions. Maintained on IV lasix. Mag, TSH/FT4 pending. Will continue supportive care, closely monitor for worsening status for ARDS and multiorgan failure, COVID requested. UA not marked appearing. Transition from home Xarelto to heparin drip given unsafe oral intake. Bld cx x 2 obtained in the ED. 2. Hypokalemia: Admission K+ 3.2, magnesium level requested, supplementation given, repeat level in AM. 3. PAF: Holding Xarelto as well as oral Coreg as well as sotalol regimen given unsafe oral intake transition to heparin drip, may consider IV beta-margi if necessary. 4. Hypothyroidism: Continue home synthroid regimen, TSH and FT4 pending. 5. Chronic anemia, iron deficiency anemia: Admission hemoglobin 9.5, repeat 11/17/2019 9.6, stable, trend. 6. Hypertension: Holding patient oral regimen given unsafe oral intake, speech consulted as noted, PRN IV hydralazine and may consider IV beta-margi if needed as well. 7. Hyperlipidemia: Patient not on statin therapy, and holding fenofibrate. 8. Anxiety and depression: Holding patient Abilify as well as sertraline given on safe oral intake. 9. Diabetes mellitus type II: Hold oral home regimen, n.p.o. status given unsafe oral intake, accu checks w/ ISS every 6 hours while n.p.o. status, HgbA1c requested. 10. DVT Prophylaxis: SCDs, heparin drip. Prolonged care time: Patient evaluated and several changes made to management. Additional time above my 70 minute initial evaluation: 63 minutes. Procedures: [id number] Prolonged InPt Service; first hour
[2019-11-17 07:19] LABS: Absolute Lymphocyte Count 0.41 X10^3/uL (0.83-4.51); Absolute Neutrophil Count 5.4 X10^3/uL (2.0-7.7); Basophil# 0.02 X10^3/uL; Basophil% 0.3 % (0-1); Eosinophil# 0.05 X10^3/uL; Eosinophils% 0.8 % (0-5); Hemoglobin 9.6 g/dL (13.0-16.5); Lymphocyte # 0.41 X10^3/ul (4.0); Lymphocyte % 6.3 % (19-41); Mean Corp Hgb Conc 29.1 g/dL (32-36); Mean Corpuscular Hgb 28.9 pg (27.0-32.0); Mean Corpuscular Volume 99.4 fL (80-94); Mean Platelet Vol. 9.7 fl (6.2-12.0); Monocyte# 0.58 X10^3/uL; Monocyte% 8.9 % (0-10); NRBC Flagged by Analyzer 0 % (0-5); Neutrophil # 5.39 X10^3/uL (2.7-7.7); Neutrophil % 82.6 % (47-70); POSITIVE DIFFERENTIAL YES; Platelet Count 211 K/mm3 (150-450); RBC Distribution Width CV 14.9 % (11.6-14.6); RBC Distribution Width SD 54.2 fl (35.1-43.9); Red Blood Count 3.32 M/mm3 (4.6-6.2); White Blood Count 6.5 K/mm3 (4.4-11.0)
[2019-11-17 07:42] LABS: Procalcitonin 0.11 ng/mL (0.00-0.09)
[2019-11-17 07:44] LABS: Anion Gap 8 (5-15); BUN 27 mg/dL (7-18); BUN/Creat Ratio 24.5 RATIO (10-20); Chloride 112 mmol/L (98-107); EST Glomerular Filtration Rate 69 mL/min (>60); Est Glom Filt Rate - Afr Amer 84 mL/min (>60); Estimated Creatinine Clearance 60.85 ml/min; Glucose 99 mg/dL (74-106); Potassium 3.2 mmol/L (3.5-5.1); Sodium Level 145 mmol/L (136-145); Thyroid Stim Hormone (TSH) 0.55 uIU/mL (0.358-3.74)
[2019-11-17 07:45] LABS: Cholesterol 170 mg/dL (200); Ferritin 141 ng/mL (26-388); High Density Lipoprotein 31 mg/dL; LDH 227 U/L (87-241); T4 Free Direct 1.02 ng/dL (0.76-1.46); Triglycerides 128 mg/dL; Very Low Density Lipoprotein 26 mg/dL (5-40)
[2019-11-17 07:48] LABS: Differential Comment SCANNED; Differential Indicated SCAN CRITERIA MET
[2019-11-17] MEDS: Heparin Injection (Vial) 5,000 UNIT/ML VIAL 7500 UNIT IV (08:00)
[2019-11-17] MEDS: HEPARIN/D5w 25,000 UNITS 25,000 UNITS/250 ML IV.SOLN. 14 UNITS IV (08:06)
[2019-11-17] MEDS: 0.9% Saline Lock 10 ML Syringe IV ×3 (08:11→17:03)
[2019-11-17] MEDS: Aspirin 300 MG Suppository RECTAL (08:14)
[2019-11-17 08:46] LABS: Bedside Glucose 102 mg/dL (70-110)
--- NOTE | 2019-11-17 09:19 | CON.PCM_ITS ---
Reason for Consult Date of Consultation: 11/17/19 Reason for Consultation: Acute hypoxemic respiratory failure/acute encep halopathy History of Present Illness: The patient is a 74-year-old male, with a history as outlined below, who presented to the emergency department from his intermediate facility over concerns that the patient may have had a stroke. He apparently had developed worsening lethargy and had been experiencing hallucinations. The patient does have an apparent history of heart failure, coronary disease and atrial fibrillation. On presentation to the emergency department, the patient was noted to be afebrile but was tachypneic and hypoxemic. Laboratory evaluation revealed no evidence of a leukocytosis. Chemistry profile revealed a sodium of 147, chloride of 114 and creatinine of 1.19. Troponin was negative. BNP was elevated to 890. Urine analysis was largely unremarkable. MRSA screen was negative. Chest x-ray revealed bilateral pulmonary infiltrates and effusions. CODE STATUS was confirmed to be DNR CCA without intubation. COVID testing was obtained and sent in the emergency department. CT head revealed only chronic involutional changes of the brain. The patient was placed on antimicrobials and scheduled Lasix. He was then admitted to medical surgical floor for further management. Past Medical History Medical History: Medical History (Last Updated 11/17/19 @ 03:[address] Yandel Osborne MD) Atrial fibrillation I48.91 Systolic heart failure I50.20 Allergies No Known Allergies Allergy (Verified 11/16/19 22:55) Home Medications: Ambulatory Orders Medication Instructions Recorded Aripiprazole [Abilify] 5 mg PO DAILY 11/16/19 Ascorbic Acid 500 mg PO DAILY 11/16/19 Aspirin [Aspirin, Baby] 81 mg PO DAILY@0800 11/16/19 Carvedilol [Coreg] 12.5 mg PO BID 11/16/19 Fenofibrate 67 mg PO DAILY 11/16/19 Ferrous Sulfate 325 mg PO DAILY 11/16/19 Furosemide 40 mg PO DAILY 11/16/19 Glimepiride 1 mg PO DAILY 11/16/19 Levothyroxine [Synthroid] 75 mcg PO DAILY 11/16/19 Lisinopril [Zestril] 10 mg PO DAILY 11/16/19 Loratadine/Pseudoephedrine 1 ea PO PRN PRN 11/16/19 [Claritin-D 24 Hour Tablet] Magnesium l-Lactate [Magnesium 84 mg PO 4X/DAY 11/16/19 l-Lactate Dihyd Sr] Multivitamin [Once Daily] 1 ea PO DAILY 11/16/19 Niacin 1,000 mg PO DAILY 11/16/19 Oxybutynin Chloride 40 mg PO DAILY 11/16/19 Potassium Chloride 40 meq PO BID 11/16/19 Rivaroxaban [Xarelto] 15 mg PO DAILY 11/16/19 Sennosides/Docusate Sodium [Senna 1 ea PO BID 11/16/19 Plus Tablet] Sertraline HCl [Zoloft] 100 mg PO DAILY 11/16/19 Sotalol HCl [Sotalol] 80 mg PO BID 11/16/19 Tramadol HCl 50 mg PO Q6H PRN PRN 11/16/19 hydrALAZINE [Apresoline] 100 mg PO BID 11/16/19 Surgical History: coronary bypass surgery, - - Knee surgery Lives: Residential Smoking Status: Former smoker Alcohol: Occasional Drugs: None - *Family History Maternal History Items: Heart Disease Paternal History Items: - - Per patient's , patient father lived to be 96. Review of Systems Unable to obtain accurate/complete ROS d/t: Due to encephalopathy Patient Problems: Active and Suspected Problems (Last Updated 11/17/19 @ 03:[address] Yandel Osborne MD) Lethargy (Acute) Bilateral pulmonary infiltrates on chest x-ray (Acute) Suspected COVID-19 virus infection (Acute) Respiratory failure (Acute) Acute encephalopathy (Acute) Lower extremity weakness (Acute) Objective: The patient's most recent lab work, culture data and imaging studies have all been personally reviewed. Strep and urine Legionella antigens were negative. Respiratory viral panel was negative. - Physical Exam Vitals/I&O's: Vital Signs Temp Pulse Resp BP Pulse Ox 97.7 F L 61 17 125/74 H 94 11/17/19 06:00 11/17/19 07:27 11/17/19 06:00 11/17/19 06:00 11/17/19 06:00 Oxygen Flow Rate (L/min) 8 Oxygen Delivery Method Venturi Mask Weight: 212 lb 11.937 oz Body Mass Index (BMI) 29.7 Finger Stick Blood Glucose 77 Intake and Output for Last 24 Hours 11/15/19 11/16/19 11/17/19 23:59 23:59 23:59 Intake Total 355 / 355 Output Total 1400 / 1400 Balance - / -1045 / -1045 General: Disoriented, Lethargic HEENT: Atraumatic, Normocephalic Oral: Dry Mucosa Neck: Supple, No Nodes, Trachea Midline Lungs: Diminished, Rhonchi, - - Sonorous respirations Cardiovascular: Normal S1, Normal S2, Bradycardic Abdomen: Bowel Sounds Present, Soft, Non Tender Extremities: No clubbing, No cyanosis, Edema Skin: No breakdown Musculoskeletal: No Muscle Wasting Lymphatic: No Cervical, Supraclavicular, or Inguinal Adenopathy Neurological: - - Opens eyes to verbal stimulation but will not follow commands. Psych/Mental Status: Flat Affect Labs (Last 48 Hours) 11/16/19 11/16/19 11/16/19 23:17 23:20 23:30 WBC RBC Hgb Hct MCV MCH MCHC RDW Std Deviation RDW Coeff of Monica Plt Count MPV Immature Gran % (Auto) Neut % (Auto) Lymph % (Auto) Crisp % (Auto) Eos % (Auto) Baso % (Auto) Absolute Neuts (auto) Absolute Lymphs (auto) Nucleated RBC % Differential Comment Platelet Estimate Hypochromasia PT INR APTT Sodium 147 H Potassium 3.8 Chloride 114 H Carbon Dioxide 26.0 Anion Gap 7 BUN 29 H Creatinine 1.19 Estim Creat Clear Calc 56.25 Est GFR (MDRD) Af Amer 76 Est GFR (MDRD) Non-Af 63 BUN/Creatinine Ratio 24.4 H Glucose 76 Lactic Acid Calcium 8.2 L Magnesium Ferritin Total Bilirubin 0.60 AST 28 ALT 17 Alkaline Phosphatase 62 Lactate Dehydrogenase Troponin I 0.030 C-React Prot Ext Range B-Natriuretic Peptide Total Protein 6.2 L Albumin 2.6 L Globulin 3.6 Albumin/Globulin Ratio 0.7 L Triglycerides Cholesterol LDL Cholesterol VLDL Cholesterol HDL Cholesterol Vitamin B12 Procalcitonin TSH Free T4 Urine Color Yellow Urine Clarity Sl. Cloudy Urine pH 6.0 Ur Specific Casper 1.015 Urine Protein 15 H Urine Glucose (UA) Normal Urine Ketones 5 H Urine Occult Blood 150 H Urine Nitrite Negative Urine Bilirubin Negative Urine Urobilinogen 1 H Ur Leukocyte Esterase Negative Urine RBC 25-50 SEEN Urine WBC 0 SEEN Ur Squamous Epith Cells 0-5 SEEN Urine Bacteria 0 SEEN Urine Mucus 0 SEEN RPR COVID-19 (AFUA) MRSA (PCR) POC Glucose 70 11/16/19 11/16/19 11/16/19 23:30 23:30 23:30 WBC 7.1 RBC 3.17 L Hgb 9.5 L Hct 30.7 L MCV 96.8 H MCH 30.0 MCHC 30.9 L RDW Std Deviation 52.8 H RDW Coeff of Monica 14.9 H Plt Count 239 MPV 9.8 Immature Gran % (Auto) 1.500 H Neut % (Auto) 81.5 H Lymph % (Auto) 7.0 L Crisp % (Auto) 8.9 Eos % (Auto) 0.7 Baso % (Auto) 0.4 Absolute Neuts (auto) 5.8 Absolute Lymphs (auto) 0.50 L Nucleated RBC % 0 Differential Comment COMMENT Platelet Estimate ADEQUATE Hypochromasia 1+ PT 16.9 H INR 1.4 APTT 39.8 H Sodium Potassium Chloride Carbon Dioxide Anion Gap BUN Creatinine Estim Creat Clear Calc Est GFR (MDRD) Af Amer Est GFR (MDRD) Non-Af BUN/Creatinine Ratio Glucose Lactic Acid 0.8 Calcium Magnesium Ferritin Total Bilirubin AST ALT Alkaline Phosphatase Lactate Dehydrogenase Troponin I C-React Prot Ext Range B-Natriuretic Peptide Total Protein Albumin Globulin Albumin/Globulin Ratio Triglycerides Cholesterol LDL Cholesterol VLDL Cholesterol HDL Cholesterol Vitamin B12 Procalcitonin TSH Free T4 Urine Color Urine Clarity Urine pH Ur Specific Casper Urine Protein Urine Glucose (UA) Urine Ketones Urine Occult Blood Urine Nitrite Urine Bilirubin Urine Urobilinogen Ur Leukocyte Esterase Urine RBC Urine WBC Ur Squamous Epith Cells Urine Bacteria Urine Mucus RPR COVID-19 (AFUA) MRSA (PCR) POC Glucose 11/16/19 11/17/19 11/17/19 23:35 00:00 00:37 WBC RBC Hgb Hct MCV MCH MCHC RDW Std Deviation RDW Coeff of Monica Plt Count MPV Immature Gran % (Auto) Neut % (Auto) Lymph % (Auto) Crisp % (Auto) Eos % (Auto) Baso % (Auto) Absolute Neuts (auto) Absolute Lymphs (auto) Nucleated RBC % Differential Comment Platelet Estimate Hypochromasia PT INR APTT Sodium Potassium Chloride Carbon Dioxide Anion Gap BUN Creatinine Estim Creat Clear Calc Est GFR (MDRD) Af Amer Est GFR (MDRD) Non-Af BUN/Creatinine Ratio Glucose Lactic Acid Calcium Magnesium Ferritin Total Bilirubin AST ALT Alkaline Phosphatase Lactate Dehydrogenase Troponin I C-React Prot Ext Range B-Natriuretic Peptide 889.2 H Total Protein Albumin Globulin Albumin/Globulin Ratio Triglycerides Cholesterol LDL Cholesterol VLDL Cholesterol HDL Cholesterol Vitamin B12 Procalcitonin TSH Free T4 Urine Color Urine Clarity Urine pH Ur Specific Casper Urine Protein Urine Glucose (UA) Urine Ketones Urine Occult Blood Urine Nitrite Urine Bilirubin Urine Urobilinogen Ur Leukocyte Esterase Urine RBC Urine WBC Ur Squamous Epith Cells Urine Bacteria Urine Mucus RPR COVID-19 (AFUA) Pending MRSA (PCR) POC Glucose 77 11/17/19 11/17/19 11/17/19 02:43 02:52 06:16 WBC RBC Hgb Hct MCV MCH MCHC RDW Std Deviation RDW Coeff of Monica Plt Count MPV Immature Gran % (Auto) Neut % (Auto) Lymph % (Auto) Crisp % (Auto) Eos % (Auto) Baso % (Auto) Absolute Neuts (auto) Absolute Lymphs (auto) Nucleated RBC % Differential Comment Platelet Estimate Hypochromasia PT INR APTT Sodium Potassium Chloride Carbon Dioxide Anion Gap BUN Creatinine Estim Creat Clear Calc Est GFR (MDRD) Af Amer Est GFR (MDRD) Non-Af BUN/Creatinine Ratio Glucose Lactic Acid Calcium Magnesium Ferritin Total Bilirubin AST ALT Alkaline Phosphatase Lactate Dehydrogenase Troponin I C-React Prot Ext Range B-Natriuretic Peptide Total Protein Albumin Globulin Albumin/Globulin Ratio Triglycerides Cholesterol LDL Cholesterol VLDL Cholesterol HDL Cholesterol Vitamin B12 Procalcitonin TSH Free T4 Urine Color Urine Clarity Urine pH Ur Specific Casper Urine Protein Urine Glucose (UA) Urine Ketones Urine Occult Blood Urine Nitrite Urine Bilirubin Urine Urobilinogen Ur Leukocyte Esterase Urine RBC Urine WBC Ur Squamous Epith Cells Urine Bacteria Urine Mucus RPR COVID-19 (AFUA) MRSA (PCR) Negative POC Glucose 108 102 11/17/19 11/17/19 11/17/19 06:48 06:48 06:48 WBC 6.5 RBC 3.32 L Hgb 9.6 L Hct 33.0 L MCV 99.4 H MCH 28.9 MCHC 29.1 L D RDW Std Deviation 54.2 H RDW Coeff of Monica 14.9 H Plt Count 211 MPV 9.7 Immature Gran % (Auto) 1.100 H Neut % (Auto) 82.6 H Lymph % (Auto) 6.3 L Crisp % (Auto) 8.9 Eos % (Auto) 0.8 Baso % (Auto) 0.3 Absolute Neuts (auto) 5.4 Absolute Lymphs (auto) 0.41 L Nucleated RBC % 0 Differential Comment SCANNED Platelet Estimate Hypochromasia PT INR APTT Sodium 145 Potassium 3.2 L Chloride 112 H Carbon Dioxide 25.0 Anion Gap 8 BUN 27 H Creatinine 1.10 Estim Creat Clear Calc 60.85 Est GFR (MDRD) Af Amer 84 Est GFR (MDRD) Non-Af 69 BUN/Creatinine Ratio 24.5 H Glucose 99 Lactic Acid Calcium 8.0 L Magnesium Ferritin Total Bilirubin AST ALT Alkaline Phosphatase Lactate Dehydrogenase Troponin I C-React Prot Ext Range B-Natriuretic Peptide Total Protein Albumin Globulin Albumin/Globulin Ratio Triglycerides Cholesterol LDL Cholesterol VLDL Cholesterol HDL Cholesterol Vitamin B12 Pending Procalcitonin TSH 0.55 Free T4 Urine Color Urine Clarity Urine pH Ur Specific Casper Urine Protein Urine Glucose (UA) Urine Ketones Urine Occult Blood Urine Nitrite Urine Bilirubin Urine Urobilinogen Ur Leukocyte Esterase Urine RBC Urine WBC Ur Squamous Epith Cells Urine Bacteria Urine Mucus RPR COVID-19 (AFUA) MRSA (PCR) POC Glucose 11/17/19 11/17/19 11/17/19 06:48 06:48 06:48 WBC RBC Hgb Hct MCV MCH MCHC RDW Std Deviation RDW Coeff of Monica Plt Count MPV Immature Gran % (Auto) Neut % (Auto) Lymph % (Auto) Crisp % (Auto) Eos % (Auto) Baso % (Auto) Absolute Neuts (auto) Absolute Lymphs (auto) Nucleated RBC % Differential Comment Platelet Estimate Hypochromasia PT INR APTT Sodium Potassium Chloride Carbon Dioxide Anion Gap BUN Creatinine Estim Creat Clear Calc Est GFR (MDRD) Af Amer Est GFR (MDRD) Non-Af BUN/Creatinine Ratio Glucose Lactic Acid Calcium Magnesium 2.0 Ferritin 141 Total Bilirubin AST ALT Alkaline Phosphatase Lactate Dehydrogenase 227 Troponin I C-React Prot Ext Range 35.30 H B-Natriuretic Peptide Total Protein Albumin Globulin Albumin/Globulin Ratio Triglycerides 128 Cholesterol 170 LDL Cholesterol 113 VLDL Cholesterol 26 HDL Cholesterol 31 L Vitamin B12 Procalcitonin 0.11 H TSH Free T4 1.02 Urine Color Urine Clarity Urine pH Ur Specific Casper Urine Protein Urine Glucose (UA) Urine Ketones Urine Occult Blood Urine Nitrite Urine Bilirubin Urine Urobilinogen Ur Leukocyte Esterase Urine RBC Urine WBC Ur Squamous Epith Cells Urine Bacteria Urine Mucus RPR Pending COVID-19 (AFUA) MRSA (PCR) POC Glucose Microbiology 11/16/19 23:17 Urine, Clean Catch Legionella Antigen - Final 11/16/19 23:17 Urine, Clean Catch Streptococcus pneumoniae Antigen (M - Final 11/16/19 23:35 Mucosa - Nasopharyngeal Respiratory Panel (PCR) - Final Clinical Impression(s) from Imaging Studies Brain CT 11/16/19 22:40 IMPRESSION: No acute intracranial abnormality. Chronic involutional and white matter changes. Individualized dose optimization techniques were used for this CT. at 2300 Reported and signed by: Kelsey Walter MD Electronically Signed: Kelsey Walter MD at 23:00 EDT Tel , Service support , ADDENDUM: 11/16/19 2308 IMPRESSION: No acute intracranial abnormality. Chronic involutional and white matter changes. Individualized dose optimization techniques were used for this CT. at 2300 Reported and signed by: Kelsey Walter MD N.B. : The above information has been verbally conveyed by Kelsey Walter MD to Dr. Haseeb Ibarra MD, on 11/16/2019 23:01:48 (ET). Electronically Signed: Kelsey Walter MD at 23:00 EDT Tel , Service support , Chest X-Ray 11/16/19 23:10 IMPRESSION: Bilateral pleural effusions. Bilateral pulmonary opacities may be related to asymmetric edema, pneumonia and/or atelectasis. at 0010 Reported and signed by: Kelsey Walter MD Electronically Signed: Kelsey Walter MD at 0:10 EDT Tel , Service support , Current Medications Albuterol Sulfate (Ventolin Aerosols) 2.5 mg INHALATION Q2H PRN PRN PRN Reason: Dyspnea, wheezing Albuterol/Ipratropium (Duoneb) 3 ml INHALATION Q4HWA.RT [facility] Aspirin (Aspirin) 300 mg RECTAL DAILY [facility] Last Admin: 11/17/19 08:14 Dose: 300 mg Documented by: Dextrose (D50w Syringe) 0 gm IV X1 PRN; Protocol PRN Reason: Hypoglycemia Furosemide (Lasix) 40 mg IV BID@1000,1800 [facility] Last Admin: 11/17/19 08:11 Dose: 40 mg Documented by: Glucagon () 1 mg IM .X1 PRN PRN Reason: Hypoglycemia Heparin Sodium (Porcine) (Heparin Na) 0 unit IV UD PRN; Protocol Hydralazine HCl (Apresoline Iv) 5 mg IV Q30M PRN PRN Reason: to maintain BP goals Sodium Chloride () 250 mls @ 15 mls/hr IV .[id number] PRN PRN Reason: Saline Flush Sodium Chloride () 250 mls @ 15 mls/hr IV .[id number] PRN PRN Reason: Additional IVPB Infusion Heparin Sodium/Dextrose () 25,000 units in 250 mls @ 14 mls/hr IV .[id number] [facility]; Protocol Last Admin: 11/17/19 08:06 Dose: 1,400 units/hr, 14 mls/hr Documented by: Vancomycin IV Pharmacy to Dose (1 ea/ Sodium Chloride) 500 mls @ 250 mls/hr IV X1 PRN; Protocol PRN Reason: Rx to Dose Piperacillin Sod/Tazobactam (Sod 3.375 gm/ Sodium Chloride) 50 mls @ 12.5 mls/hr IV Q8 [facility] Last Admin: 11/17/19 08:08 Dose: 12.5 mls/hr Documented by: Vancomycin HCl 2,000 mg/ (Sodium Chloride) 540 mls @ 250 mls/hr IV X1 ONE Stop: 11/17/19 09:39 Last Admin: 11/17/19 07:55 Dose: 250 mls/hr Documented by: Potassium Chloride () 10 meq in 100 mls @ 100 mls/hr IV BOLUS Q1H KASSANDRA Stop: 11/17/19 13:29 Vancomycin HCl 1,250 mg/ (Sodium Chloride) 275 mls @ 167 mls/hr IV Q12H KASSANDRA Labetalol HCl (Trandate) 10 - 20 mg IV Q10M PRN PRN PRN Reason: to maintain BP goals Ondansetron HCl (Zofran) 4 mg IV Q8H PRN PRN PRN Reason: NAUSEA/VOMITING Sodium Chloride () 10 - 40 ml IV UD PRN PRN Reason: SALINE FLUSH Last Admin: 11/17/19 08:11 Dose: 10 ml Documented by: Assessment/Plan All Active Problems (Last Updated 11/17/19 @ 03:[address] Yandel Osborne MD) Lethargy (Acute) Bilateral pulmonary infiltrates on chest x-ray (Acute) Suspected COVID-19 virus infection (Acute) Respiratory failure (Acute) Acute encephalopathy (Acute) Lower extremity weakness (Acute) RECOMMENDATIONS: 1. Agree with continuing broad-spectrum antimicrobial coverage, pending infectious work-up. 2. Obtain arterial blood gas. 3. Continue aggressive bronchopulmonary hygiene to assist with airway clearance. 4. Obtain MRI brain. 5. COVID testing is pending. 6. Electrolyte repletion as ordered. 7. Continue scheduled Lasix and heparin drip. 8. Echocardiogram is pending. IMPRESSIONS: 1. Acute hypoxemic respiratory failure Differential would include healthcare associated pneumonia versus possible COVID infection. The patient is currently having difficulty clearing his airway of secretions. However, CODE STATUS was confirmed to be DNR CCA without intubation. Therefore, recommend continuing supplemental oxygen with a goal to maintain saturations at or above 90%. Continue aggressive bronchopulmonary hygiene, including NT suctioning as needed. Continue empiric antimicrobials, while awaiting COVID test results. 2. Acute encephalopathy Possibly infectious in etiology. However, stroke still consideration. Therefore, MRI is going to be obtained. In addition to the aforementioned, will obtain a baseline arterial blood gas to evaluate for the presence of hypercarbia. 3. Hypokalemia Electrolyte repletion as ordered. 4. Anemia/coronary artery disease/heart failure/diabetes mellitus/hypothyroidism/hypertension/atrial fibrillation Complicates care, management, recovery and prognosis. Continue home medications as indicated. This note was generated with Bracketzation software. It may contain incorrect words, spelling, and punctuation that were not noted in checking the note before signing. Inpatient E&M: 39369 Init Hosp L3
[2019-11-17] MEDS: Potassium Chloride 10mEq/100mL 10 MEQ/100 ML IV.SOLN. 100 MEQ IV BOLUS ×4 (09:41→15:10)
--- NOTE | 2019-11-17 09:52 | PCM.RX.CS ---
Consult Pharmacy has been consulted to manage selected antiobiotic: Vancomycin Type of Consult: New start Suspected Infection: Other Labs: Sodium 145 mmol/L (136-145) 11/17/19 06:48 Potassium 3.2 mmol/L (3.5-5.1) L 11/17/19 06:48 Chloride 112 mmol/L (98-107) H 11/17/19 06:48 Carbon Dioxide 25.0 mmol/L (21.0-32.0) 11/17/19 06:48 Anion Gap 8 (5-15) 11/17/19 06:48 BUN 27 mg/dL (7-18) H 11/17/19 06:48 Creatinine 1.10 mg/dL (0.70-1.30) 11/17/19 06:48 Est GFR (MDRD) Af Amer 84 mL/min (>60) 11/17/19 06:48 Est GFR (MDRD) Non-Af 69 mL/min (>60) 11/17/19 06:48 BUN/Creatinine Ratio 24.5 RATIO (10-20) H 11/17/19 06:48 Glucose 99 mg/dL (74-106) 11/17/19 06:48 Microbiology: Microbiology 11/16/19 23:17 Urine, Clean Catch Legionella Antigen - Final 11/16/19 23:17 Urine, Clean Catch Streptococcus pneumoniae Antigen (M - Final 11/16/19 23:35 Mucosa - Nasopharyngeal Respiratory Panel (PCR) - Final Weight used for dosin.5 kg Estimated Creatinine Clearance: 67.7ML/MIN Goal Trough: 15-20 mcg/mL Pharmacy Plan for Drug Dosing: Give initial loading dose of 2000mg IV x1, then continue with 1250mg IV q12h per [facility] dosing protocol. A vancomycin trough level will be ordered to be drawn before the 4th dose tomorrow evening. The patient's CrCl of 67.7ml/min was calculated using an adjusted body weight of 83.8kg. Pharmacy Service will continue to monitor and adjust dosing as required. Follow-Up Labs: Trough Vancomycin Labs to be done on [date and time ordered]: 11/18/19 19:30
[2019-11-17 10:31] LABS: Base Excess 3 mmol/L (-2 to +2); Bicarbonate 27.7 mmol/L (22-26); PO2 75 mmHG (75-100); SO2 95 % (95-99); Total Carbon Dioxide 29 mmol/L; pCO2 43.9 mmHg (35-45); pH 7.41 (7.35-7.45)
[2019-11-17 10:40] LABS: Blood Gas Specimen Type ART; SITE R RADIAL
[2019-11-17 10:41] LABS: FI02 40; Time Given 954
--- NOTE | 2019-11-17 10:46 | MRI_ITS ---
STUDY: MRA NECK WITHOUT CONTRAST REASON FOR EXAM: Male, 74 years old. lethargic, respiratory failure, suspected covid TECHNIQUE: Source images were obtained, MIPs were performed. The study was performed unenhanced. COMPARISON: None. FINDINGS: RIGHT CAROTID ARTERIES: Normal right common carotid artery (CCA). Normal right internal carotid bulb. Normal origin of the right internal carotid (ICA) artery without a hemodynamically significant stenosis. Normal visualized cervical portion of the right internal carotid artery. Normal origin of the right external carotid artery (ECA). LEFT CAROTID ARTERIES: Normal left common carotid artery (CCA). Normal left internal carotid bulb. Normal origin of the left internal carotid (ICA) artery without a hemodynamically significant stenosis. Normal visualized cervical portion of the left internal carotid artery. Normal origin of the left external carotid artery (ECA). VERTEBRAL ARTERIES: Normal antegrade flow within the bilateral vertebral artery without a hemodynamically significant stenosis. They are codominant. MRI/MRA Neck without Contrast IMPRESSION: Normal bilateral cervical carotid and vertebral arteries. Electronically Signed: Buddy Colón MD at 14:14 EDT , Service support ,
[2019-11-17 11:16] LABS: Bedside Glucose 100 mg/dL (70-110)
[2019-11-17] MEDS: Ipratropium/Albuterol Sulfate 3 ML AMPUL.NEB INHALATION ×3 (11:30→19:01)
[2019-11-17 13:04] LABS: Hemoglobin A1c 4.8 % (4.2-6.3)
[2019-11-17 15:04] LABS: Partial Thromboplast Time 162.3 Seconds (24.1-36.2)
[2019-11-17 18:01] LABS: Bedside Glucose 81 mg/dL (70-110)
[2019-11-17 21:28] LABS: Partial Thromboplast Time 174.5 Seconds (24.1-36.2)
[2019-11-18] VITALS (15 sets, daily range): BP systolic 100–140; BP diastolic 54–85; PULSE 70–118; RESP 16–20; TEMP 36–36.8; O2SAT 93–100; BMI 29.7
[2019-11-18 00:16] LABS: Bedside Glucose 82 mg/dL (70-110)
[2019-11-18 04:32] LABS: Absolute Lymphocyte Count 0.36 X10^3/uL (0.83-4.51); Absolute Neutrophil Count 7.9 X10^3/uL (2.0-7.7); Basophil# 0.02 X10^3/uL; Basophil% 0.2 % (0-1); Eosinophil# 0.05 X10^3/uL; Eosinophils% 0.6 % (0-5); Hemoglobin 10.1 g/dL (13.0-16.5); Lymphocyte # 0.36 X10^3/ul (4.0); Lymphocyte % 4.1 % (19-41); Mean Corp Hgb Conc 31.6 g/dL (32-36); Mean Platelet Vol. 9.6 fl (6.2-12.0); Monocyte# 0.46 X10^3/uL; Monocyte% 5.2 % (0-10); NRBC Flagged by Analyzer 0 % (0-5); Neutrophil # 7.85 X10^3/uL (2.7-7.7); Neutrophil % 89.1 % (47-70); POSITIVE DIFFERENTIAL YES; Platelet Count 208 K/mm3 (150-450); RBC Distribution Width CV 14.5 % (11.6-14.6); RBC Distribution Width SD 49.5 fl (35.1-43.9); Red Blood Count 3.37 M/mm3 (4.6-6.2); White Blood Count 8.8 K/mm3 (4.4-11.0)
--- NOTE | 2019-11-18 04:38 | RAD_ITS ---
HISTORY: dyspnea, cough ADDITIONAL HISTORY: None provided. TECHNIQUE: Frontal chest radiograph. Number of images including paperwork: 1 COMPARISON: 11/16/2019 FINDINGS: LUNGS AND PLEURA: Decrease in bilateral infiltrates and pleural effusions. CARDIAC SILHOUETTE: Stable. MEDIASTINUM AND STEFAN: Stable. UPPER ABDOMEN: Unremarkable. SKELETON AND SOFT TISSUES: No acute findings. OTHER DEVICES AND HARDWARE: Sternal wires and surgical clips. RAD/Chest 1 View (Portable) IMPRESSION: No acute cardiopulmonary abnormality. at 0515 Reported and signed by: Kelsey Walter MD Electronically Signed: Kelsey Walter MD at 5:15 EDT Tel , Service support ,
[2019-11-18 04:41] LABS: Differential Indicated SCAN CRITERIA MET
[2019-11-18 04:47] LABS: Partial Thromboplast Time 90.3 Seconds (24.1-36.2)
[2019-11-18 05:00] LABS: ALB/GLOB Ratio 0.6 RATIO (0.9-2.4); AST(SGOT) 20 U/L (15-37); Alanine Aminotransfer ALT/SGPT 15 U/L (16-61); Albumin, Serum 2.4 g/dL (3.2-5.0); Alkaline Phosphatase 60 U/L (45-117); Anion Gap 7 (5-15); BUN 22 mg/dL (7-18); BUN/Creat Ratio 22.9 RATIO (10-20); Calcium,Total 7.5 mg/dL (8.5-10.1); Chloride 107 mmol/L (98-107); Creatinine, Serum 0.96 mg/dL (0.70-1.30); EST Glomerular Filtration Rate 81 mL/min (>60); Est Glom Filt Rate - Afr Amer 98 mL/min (>60); Estimated Creatinine Clearance 69.72 ml/min; Globulin 3.7 g/dL (2.2-4.2); Glucose 80 mg/dL (74-106); Potassium 2.3 mmol/L (3.5-5.1); Protein, Total 6.1 g/dL (6.4-8.2); Sodium Level 144 mmol/L (136-145)
[2019-11-18 05:21] LABS: Bedside Glucose 74 mg/dL (70-110)
[2019-11-18] MEDS: 0.9% Saline Lock 10 ML Syringe IV ×2 (05:44→10:31)
[2019-11-18] MEDS: Potassium Chloride 10mEq/100mL 10 MEQ/100 ML IV.SOLN. 100 MEQ IV BOLUS ×8 (05:45→19:29)
[2019-11-18] MEDS: Ipratropium/Albuterol Sulfate 3 ML AMPUL.NEB INHALATION ×3 (07:47→18:53)
--- NOTE | 2019-11-18 07:54 | PCM.PN.INT ---
Subjective: Patient did okay overnight. Patient did have an NT suction earlier this morning with significant improvement in oxygenation status. Patient continues to be somewhat confused and unable to tell me where he is at. Patient is aware of himself. Patient is not giving me any complaints at this time. Patient did have significant hypokalemia this morning, but this is currently being replaced. General: Alert, Cooperative, Confused, Disoriented, - - Mild conversational dyspnea. On nasal cannula during my evaluation. HEENT: Atraumatic, PERRLA, EOMI, Normocephalic, - - No scleral icterus or injection noted Oral: Moist Mucosa, No Gingival or Mucosal Lesions/ Ulcerations Neck: Supple, No JVD, No Nodes, Trachea Midline, - - Some upper airway noises noted. Lungs: No rhonchi, No wheeze, No rales, Diminished, - - Fair effort. Symmetric expansion. Cardiovascular: Regular rate, Regular Rhythm, Normal S1, Normal S2, No murmurs, No rub noted, No Gallop Abdomen: Bowel Sounds Present, Soft, Non Tender, Non-Distended Extremities: No clubbing, No cyanosis, No edema, Capillary Refill Less than 3 Seconds Skin: No rashes, No breakdown Musculoskeletal: No Tenderness to Palpation of Joints or Extremities Lymphatic: No Cervical, Supraclavicular, or Inguinal Adenopathy Neurological: Cranial nerves II-XII grossly intact, Neuro grossly intact, Motor Exam 5/5 strength throughout Psych/Mental Status: Appropriate, Flat Affect Vital Signs Temp Pulse Resp BP Pulse Ox 36.8 C 98 18 140/85 H 98 11/18/19 05:57 11/18/19 05:57 11/18/19 05:57 11/18/19 05:57 11/18/19 06:00 Oxygen Flow Rate (L/min) 3 Oxygen Delivery Method Nasal Cannula Weight: 96.5 kg Body Mass Index (BMI) 29.7 Finger Stick Blood Glucose 77 Intake and Output for Last 24 Hours 11/16/19 11/17/19 11/18/19 23:59 23:59 23:59 Intake Total 1903.51 / 1903.51 176.30 / 176.30 Output Total 4525 / 4525 400 / 400 Balance -25 / -25 -2621.49 / -2621.49 -223.70 / -223.70 Labs (Last 48 Hours) 11/16/19 11/16/19 11/16/19 23:17 23:20 23:30 WBC RBC Hgb Hct MCV MCH MCHC RDW Std Deviation RDW Coeff of Monica Plt Count MPV Immature Gran % (Auto) Neut % (Auto) Lymph % (Auto) [place] % (Auto) Eos % (Auto) Baso % (Auto) Absolute Neuts (auto) Absolute Lymphs (auto) Nucleated RBC % Differential Comment Platelet Estimate Hypochromasia PT INR APTT Specimen Type Sample Site pH Bicarbonate Actual POC Total CO2 Base Excess O2 Saturation O2 % ABG pCO2 ABG pO2 Jerrod Test O2 Delivery Device Blood Gas Notified Whom Blood Gas Notified Time Sodium 147 H Potassium 3.8 Chloride 114 H Carbon Dioxide 26.0 Anion Gap 7 BUN 29 H Creatinine 1.19 Estim Creat Clear Calc 56.25 Est GFR (MDRD) Af Amer 76 Est GFR (MDRD) Non-Af 63 BUN/Creatinine Ratio 24.4 H Glucose 76 Hemoglobin A1c Lactic Acid Calcium 8.2 L Magnesium Ferritin Total Bilirubin 0.60 AST 28 ALT 17 Alkaline Phosphatase 62 Lactate Dehydrogenase Troponin I 0.030 C-React Prot Ext Range B-Natriuretic Peptide Total Protein 6.2 L Albumin 2.6 L Globulin 3.6 Albumin/Globulin Ratio 0.7 L Triglycerides Cholesterol LDL Cholesterol VLDL Cholesterol HDL Cholesterol Vitamin B12 Procalcitonin TSH Free T4 Urine Color Yellow Urine Clarity Sl. Cloudy Urine pH 6.0 Ur Specific [place] 1.015 Urine Protein 15 H Urine Glucose (UA) Normal Urine Ketones 5 H Urine Occult Blood 150 H Urine Nitrite Negative Urine Bilirubin Negative Urine Urobilinogen 1 H Ur Leukocyte Esterase Negative Urine RBC 25-50 SEEN Urine WBC 0 SEEN Ur Squamous Epith Cells 0-5 SEEN Urine Bacteria 0 SEEN Urine Mucus 0 SEEN RPR COVID-19 (AFUA) MRSA (PCR) POC Glucose 70 11/16/19 11/16/19 11/16/19 23:30 23:30 23:30 WBC 7.1 RBC 3.17 L Hgb 9.5 L Hct 30.7 L MCV 96.8 H MCH 30.0 MCHC 30.9 L RDW Std Deviation 52.8 H RDW Coeff of Monica 14.9 H Plt Count 239 MPV 9.8 Immature Gran % (Auto) 1.500 H Neut % (Auto) 81.5 H Lymph % (Auto) 7.0 L [place] % (Auto) 8.9 Eos % (Auto) 0.7 Baso % (Auto) 0.4 Absolute Neuts (auto) 5.8 Absolute Lymphs (auto) 0.50 L Nucleated RBC % 0 Differential Comment COMMENT Platelet Estimate ADEQUATE Hypochromasia 1+ PT 16.9 H INR 1.4 APTT 39.8 H Specimen Type Sample Site pH Bicarbonate Actual POC Total CO2 Base Excess O2 Saturation O2 % ABG pCO2 ABG pO2 Jerrod Test O2 Delivery Device Blood Gas Notified Whom Blood Gas Notified Time Sodium Potassium Chloride Carbon Dioxide Anion Gap BUN Creatinine Estim Creat Clear Calc Est GFR (MDRD) Af Amer Est GFR (MDRD) Non-Af BUN/Creatinine Ratio Glucose Hemoglobin A1c Lactic Acid 0.8 Calcium Magnesium Ferritin Total Bilirubin AST ALT Alkaline Phosphatase Lactate Dehydrogenase Troponin I C-React Prot Ext Range B-Natriuretic Peptide Total Protein Albumin Globulin Albumin/Globulin Ratio Triglycerides Cholesterol LDL Cholesterol VLDL Cholesterol HDL Cholesterol Vitamin B12 Procalcitonin TSH Free T4 Urine Color Urine Clarity Urine pH Ur Specific [place] Urine Protein Urine Glucose (UA) Urine Ketones Urine Occult Blood Urine Nitrite Urine Bilirubin Urine Urobilinogen Ur Leukocyte Esterase Urine RBC Urine WBC Ur Squamous Epith Cells Urine Bacteria Urine Mucus RPR COVID-19 (AFUA) MRSA (PCR) POC Glucose 11/16/19 11/17/19 11/17/19 23:35 00:00 00:37 WBC RBC Hgb Hct MCV MCH MCHC RDW Std Deviation RDW Coeff of Monica Plt Count MPV Immature Gran % (Auto) Neut % (Auto) Lymph % (Auto) [place] % (Auto) Eos % (Auto) Baso % (Auto) Absolute Neuts (auto) Absolute Lymphs (auto) Nucleated RBC % Differential Comment Platelet Estimate Hypochromasia PT INR APTT Specimen Type Sample Site pH Bicarbonate Actual POC Total CO2 Base Excess O2 Saturation O2 % ABG pCO2 ABG pO2 Jerrod Test O2 Delivery Device Blood Gas Notified Whom Blood Gas Notified Time Sodium Potassium Chloride Carbon Dioxide Anion Gap BUN Creatinine Estim Creat Clear Calc Est GFR (MDRD) Af Amer Est GFR (MDRD) Non-Af BUN/Creatinine Ratio Glucose Hemoglobin A1c Lactic Acid Calcium Magnesium Ferritin Total Bilirubin AST ALT Alkaline Phosphatase Lactate Dehydrogenase Troponin I C-React Prot Ext Range B-Natriuretic Peptide 889.2 H Total Protein Albumin Globulin Albumin/Globulin Ratio Triglycerides Cholesterol LDL Cholesterol VLDL Cholesterol HDL Cholesterol Vitamin B12 Procalcitonin TSH Free T4 Urine Color Urine Clarity Urine pH Ur Specific [place] Urine Protein Urine Glucose (UA) Urine Ketones Urine Occult Blood Urine Nitrite Urine Bilirubin Urine Urobilinogen Ur Leukocyte Esterase Urine RBC Urine WBC Ur Squamous Epith Cells Urine Bacteria Urine Mucus RPR COVID-19 (AFUA) Not Detected MRSA (PCR) POC Glucose 77 11/17/19 11/17/19 11/17/19 02:43 02:52 06:16 WBC RBC Hgb Hct MCV MCH MCHC RDW Std Deviation RDW Coeff of Monica Plt Count MPV Immature Gran % (Auto) Neut % (Auto) Lymph % (Auto) [place] % (Auto) Eos % (Auto) Baso % (Auto) Absolute Neuts (auto) Absolute Lymphs (auto) Nucleated RBC % Differential Comment Platelet Estimate Hypochromasia PT INR APTT Specimen Type Sample Site pH Bicarbonate Actual POC Total CO2 Base Excess O2 Saturation O2 % ABG pCO2 ABG pO2 Jerrod Test O2 Delivery Device Blood Gas Notified Whom Blood Gas Notified Time Sodium Potassium Chloride Carbon Dioxide Anion Gap BUN Creatinine Estim Creat Clear Calc Est GFR (MDRD) Af Amer Est GFR (MDRD) Non-Af BUN/Creatinine Ratio Glucose Hemoglobin A1c Lactic Acid Calcium Magnesium Ferritin Total Bilirubin AST ALT Alkaline Phosphatase Lactate Dehydrogenase Troponin I C-React Prot Ext Range B-Natriuretic Peptide Total Protein Albumin Globulin Albumin/Globulin Ratio Triglycerides Cholesterol LDL Cholesterol VLDL Cholesterol HDL Cholesterol Vitamin B12 Procalcitonin TSH Free T4 Urine Color Urine Clarity Urine pH Ur Specific [place] Urine Protein Urine Glucose (UA) Urine Ketones Urine Occult Blood Urine Nitrite Urine Bilirubin Urine Urobilinogen Ur Leukocyte Esterase Urine RBC Urine WBC Ur Squamous Epith Cells Urine Bacteria Urine Mucus RPR COVID-19 (AFUA) MRSA (PCR) Negative POC Glucose 108 102 11/17/19 11/17/19 11/17/19 06:48 06:48 06:48 WBC 6.5 RBC 3.32 L Hgb 9.6 L Hct 33.0 L MCV 99.4 H MCH 28.9 MCHC 29.1 L D RDW Std Deviation 54.2 H RDW Coeff of Monica 14.9 H Plt Count 211 MPV 9.7 Immature Gran % (Auto) 1.100 H Neut % (Auto) 82.6 H Lymph % (Auto) 6.3 L [place] % (Auto) 8.9 Eos % (Auto) 0.8 Baso % (Auto) 0.3 Absolute Neuts (auto) 5.4 Absolute Lymphs (auto) 0.41 L Nucleated RBC % 0 Differential Comment SCANNED Platelet Estimate Hypochromasia PT INR APTT Specimen Type Sample Site pH Bicarbonate Actual POC Total CO2 Base Excess O2 Saturation O2 % ABG pCO2 ABG pO2 Jerrod Test O2 Delivery Device Blood Gas Notified Whom Blood Gas Notified Time Sodium 145 Potassium 3.2 L Chloride 112 H Carbon Dioxide 25.0 Anion Gap 8 BUN 27 H Creatinine 1.10 Estim Creat Clear Calc 60.85 Est GFR (MDRD) Af Amer 84 Est GFR (MDRD) Non-Af 69 BUN/Creatinine Ratio 24.5 H Glucose 99 Hemoglobin A1c Lactic Acid Calcium 8.0 L Magnesium Ferritin Total Bilirubin AST ALT Alkaline Phosphatase Lactate Dehydrogenase Troponin I C-React Prot Ext Range B-Natriuretic Peptide Total Protein Albumin Globulin Albumin/Globulin Ratio Triglycerides Cholesterol LDL Cholesterol VLDL Cholesterol HDL Cholesterol Vitamin B12 Pending Procalcitonin TSH 0.55 Free T4 Urine Color Urine Clarity Urine pH Ur Specific [place] Urine Protein Urine Glucose (UA) Urine Ketones Urine Occult Blood Urine Nitrite Urine Bilirubin Urine Urobilinogen Ur Leukocyte Esterase Urine RBC Urine WBC Ur Squamous Epith Cells Urine Bacteria Urine Mucus RPR COVID-19 (AFUA) MRSA (PCR) POC Glucose 11/17/19 11/17/19 11/17/19 06:48 06:48 06:48 WBC RBC Hgb Hct MCV MCH MCHC RDW Std Deviation RDW Coeff of Monica Plt Count MPV Immature Gran % (Auto) Neut % (Auto) Lymph % (Auto) [place] % (Auto) Eos % (Auto) Baso % (Auto) Absolute Neuts (auto) Absolute Lymphs (auto) Nucleated RBC % Differential Comment Platelet Estimate Hypochromasia PT INR APTT Specimen Type Sample Site pH Bicarbonate Actual POC Total CO2 Base Excess O2 Saturation O2 % ABG pCO2 ABG pO2 Jerrod Test O2 Delivery Device Blood Gas Notified Whom Blood Gas Notified Time Sodium Potassium Chloride Carbon Dioxide Anion Gap BUN Creatinine Estim Creat Clear Calc Est GFR (MDRD) Af Amer Est GFR (MDRD) Non-Af BUN/Creatinine Ratio Glucose Hemoglobin A1c Lactic Acid Calcium Magnesium 2.0 Ferritin 141 Total Bilirubin AST ALT Alkaline Phosphatase Lactate Dehydrogenase 227 Troponin I C-React Prot Ext Range 35.30 H B-Natriuretic Peptide Total Protein Albumin Globulin Albumin/Globulin Ratio Triglycerides 128 Cholesterol 170 LDL Cholesterol 113 VLDL Cholesterol 26 HDL Cholesterol 31 L Vitamin B12 Procalcitonin 0.11 H TSH Free T4 1.02 Urine Color Urine Clarity Urine pH Ur Specific [place] Urine Protein Urine Glucose (UA) Urine Ketones Urine Occult Blood Urine Nitrite Urine Bilirubin Urine Urobilinogen Ur Leukocyte Esterase Urine RBC Urine WBC Ur Squamous Epith Cells Urine Bacteria Urine Mucus RPR Pending COVID-19 (AFUA) MRSA (PCR) POC Glucose 11/17/19 11/17/19 11/17/19 09:54 11:00 12:37 WBC RBC Hgb Hct MCV MCH MCHC RDW Std Deviation RDW Coeff of Monica Plt Count MPV Immature Gran % (Auto) Neut % (Auto) Lymph % (Auto) [place] % (Auto) Eos % (Auto) Baso % (Auto) Absolute Neuts (auto) Absolute Lymphs (auto) Nucleated RBC % Differential Comment Platelet Estimate Hypochromasia PT INR APTT Specimen Type ART Sample Site R RADIAL pH 7.41 Bicarbonate Actual 27.7 H POC Total CO2 29 Base Excess 3 H O2 Saturation 95 O2 % 40 ABG pCO2 43.9 ABG pO2 75 Jerrod Test NA O2 Delivery Device Vent Mask Blood Gas Notified Whom ICU Blood Gas Notified Time 954 Sodium Potassium Chloride Carbon Dioxide Anion Gap BUN Creatinine Estim Creat Clear Calc Est GFR (MDRD) Af Amer Est GFR (MDRD) Non-Af BUN/Creatinine Ratio Glucose Hemoglobin A1c 4.8 Lactic Acid Calcium Magnesium Ferritin Total Bilirubin AST ALT Alkaline Phosphatase Lactate Dehydrogenase Troponin I C-React Prot Ext Range B-Natriuretic Peptide Total Protein Albumin Globulin Albumin/Globulin Ratio Triglycerides Cholesterol LDL Cholesterol VLDL Cholesterol HDL Cholesterol Vitamin B12 Procalcitonin TSH Free T4 Urine Color Urine Clarity Urine pH Ur Specific [place] Urine Protein Urine Glucose (UA) Urine Ketones Urine Occult Blood Urine Nitrite Urine Bilirubin Urine Urobilinogen Ur Leukocyte Esterase Urine RBC Urine WBC Ur Squamous Epith Cells Urine Bacteria Urine Mucus RPR COVID-19 (AFUA) MRSA (PCR) POC Glucose 100 11/17/19 11/17/19 11/17/19 12:37 14:20 15:14 WBC RBC Hgb Hct MCV MCH MCHC RDW Std Deviation RDW Coeff of Monica Plt Count MPV Immature Gran % (Auto) Neut % (Auto) Lymph % (Auto) [place] % (Auto) Eos % (Auto) Baso % (Auto) Absolute Neuts (auto) Absolute Lymphs (auto) Nucleated RBC % Differential Comment Platelet Estimate Hypochromasia PT INR APTT 162.3 H* Specimen Type Sample Site pH Bicarbonate Actual POC Total CO2 Base Excess O2 Saturation O2 % ABG pCO2 ABG pO2 Jerrod Test O2 Delivery Device Blood Gas Notified Whom Blood Gas Notified Time Sodium Potassium Chloride Carbon Dioxide Anion Gap BUN Creatinine Estim Creat Clear Calc Est GFR (MDRD) Af Amer Est GFR (MDRD) Non-Af BUN/Creatinine Ratio Glucose Hemoglobin A1c Lactic Acid Calcium Magnesium Ferritin Total Bilirubin AST ALT Alkaline Phosphatase Lactate Dehydrogenase Troponin I < 0.015 < 0.015 C-React Prot Ext Range B-Natriuretic Peptide Total Protein Albumin Globulin Albumin/Globulin Ratio Triglycerides Cholesterol LDL Cholesterol VLDL Cholesterol HDL Cholesterol Vitamin B12 Procalcitonin TSH Free T4 Urine Color Urine Clarity Urine pH Ur Specific [place] Urine Protein Urine Glucose (UA) Urine Ketones Urine Occult Blood Urine Nitrite Urine Bilirubin Urine Urobilinogen Ur Leukocyte Esterase Urine RBC Urine WBC Ur Squamous Epith Cells Urine Bacteria Urine Mucus RPR COVID-19 (AFUA) MRSA (PCR) POC Glucose 11/17/19 11/17/19 11/17/19 16:59 18:42 20:56 WBC RBC Hgb Hct MCV MCH MCHC RDW Std Deviation RDW Coeff of Monica Plt Count MPV Immature Gran % (Auto) Neut % (Auto) Lymph % (Auto) [place] % (Auto) Eos % (Auto) Baso % (Auto) Absolute Neuts (auto) Absolute Lymphs (auto) Nucleated RBC % Differential Comment Platelet Estimate Hypochromasia PT INR APTT 174.5 H* Specimen Type Sample Site pH Bicarbonate Actual POC Total CO2 Base Excess O2 Saturation O2 % ABG pCO2 ABG pO2 Jerrod Test O2 Delivery Device Blood Gas Notified Whom Blood Gas Notified Time Sodium Potassium Chloride Carbon Dioxide Anion Gap BUN Creatinine Estim Creat Clear Calc Est GFR (MDRD) Af Amer Est GFR (MDRD) Non-Af BUN/Creatinine Ratio Glucose Hemoglobin A1c Lactic Acid Calcium Magnesium Ferritin Total Bilirubin AST ALT Alkaline Phosphatase Lactate Dehydrogenase Troponin I 0.023 C-React Prot Ext Range B-Natriuretic Peptide Total Protein Albumin Globulin Albumin/Globulin Ratio Triglycerides Cholesterol LDL Cholesterol VLDL Cholesterol HDL Cholesterol Vitamin B12 Procalcitonin TSH Free T4 Urine Color Urine Clarity Urine pH Ur Specific [place] Urine Protein Urine Glucose (UA) Urine Ketones Urine Occult Blood Urine Nitrite Urine Bilirubin Urine Urobilinogen Ur Leukocyte Esterase Urine RBC Urine WBC Ur Squamous Epith Cells Urine Bacteria Urine Mucus RPR COVID-19 (AFUA) MRSA (PCR) POC Glucose 81 11/17/19 11/18/19 11/18/19 23:50 04:19 04:19 WBC 8.8 RBC 3.37 L Hgb 10.1 L Hct 32.0 L MCV 95.0 H MCH 30.0 MCHC 31.6 L D RDW Std Deviation 49.5 H RDW Coeff of Monica 14.5 Plt Count 208 MPV 9.6 Immature Gran % (Auto) 0.800 Neut % (Auto) 89.1 H Lymph % (Auto) 4.1 L [place] % (Auto) 5.2 Eos % (Auto) 0.6 Baso % (Auto) 0.2 Absolute Neuts (auto) 7.9 H Absolute Lymphs (auto) 0.36 L Nucleated RBC % 0 Differential Comment COMMENT Platelet Estimate Hypochromasia PT INR APTT Specimen Type Sample Site pH Bicarbonate Actual POC Total CO2 Base Excess O2 Saturation O2 % ABG pCO2 ABG pO2 Jerrod Test O2 Delivery Device Blood Gas Notified Whom Blood Gas Notified Time Sodium 144 Potassium 2.3 L* Chloride 107 Carbon Dioxide 30.0 Anion Gap 7 BUN 22 H Creatinine 0.96 Estim Creat Clear Calc 69.72 Est GFR (MDRD) Af Amer 98 Est GFR (MDRD) Non-Af 81 BUN/Creatinine Ratio 22.9 H Glucose 80 Hemoglobin A1c Lactic Acid Calcium 7.5 L Magnesium Ferritin Total Bilirubin 0.50 AST 20 ALT 15 L Alkaline Phosphatase 60 Lactate Dehydrogenase Troponin I C-React Prot Ext Range B-Natriuretic Peptide Total Protein 6.1 L Albumin 2.4 L Globulin 3.7 Albumin/Globulin Ratio 0.6 L Triglycerides Cholesterol LDL Cholesterol VLDL Cholesterol HDL Cholesterol Vitamin B12 Procalcitonin TSH Free T4 Urine Color Urine Clarity Urine pH Ur Specific [place] Urine Protein Urine Glucose (UA) Urine Ketones Urine Occult Blood Urine Nitrite Urine Bilirubin Urine Urobilinogen Ur Leukocyte Esterase Urine RBC Urine WBC Ur Squamous Epith Cells Urine Bacteria Urine Mucus RPR COVID-19 (AFUA) MRSA (PCR) POC Glucose 82 11/18/19 11/18/19 11/18/19 04:19 04:19 05:06 WBC RBC Hgb Hct MCV MCH MCHC RDW Std Deviation RDW Coeff of Monica Plt Count MPV Immature Gran % (Auto) Neut % (Auto) Lymph % (Auto) [place] % (Auto) Eos % (Auto) Baso % (Auto) Absolute Neuts (auto) Absolute Lymphs (auto) Nucleated RBC % Differential Comment Platelet Estimate Hypochromasia PT INR APTT 90.3 H* Specimen Type Sample Site pH Bicarbonate Actual POC Total CO2 Base Excess O2 Saturation O2 % ABG pCO2 ABG pO2 Jerrod Test O2 Delivery Device Blood Gas Notified Whom Blood Gas Notified Time Sodium Potassium Chloride Carbon Dioxide Anion Gap BUN Creatinine Estim Creat Clear Calc Est GFR (MDRD) Af Amer Est GFR (MDRD) Non-Af BUN/Creatinine Ratio Glucose Hemoglobin A1c Lactic Acid Calcium Magnesium Pending Ferritin Total Bilirubin AST ALT Alkaline Phosphatase Lactate Dehydrogenase Troponin I C-React Prot Ext Range B-Natriuretic Peptide Total Protein Albumin Globulin Albumin/Globulin Ratio Triglycerides Cholesterol LDL Cholesterol VLDL Cholesterol HDL Cholesterol Vitamin B12 Procalcitonin TSH Free T4 Urine Color Urine Clarity Urine pH Ur Specific [place] Urine Protein Urine Glucose (UA) Urine Ketones Urine Occult Blood Urine Nitrite Urine Bilirubin Urine Urobilinogen Ur Leukocyte Esterase Urine RBC Urine WBC Ur Squamous Epith Cells Urine Bacteria Urine Mucus RPR COVID-19 (AFUA) MRSA (PCR) POC Glucose 74 Microbiology 11/17/19 09:45 Sputum, Induced/Lukens Gram Stain - Final 11/16/19 23:17 Urine, Clean Catch Legionella Antigen - Final 11/16/19 23:17 Urine, Clean Catch Streptococcus pneumoniae Antigen (M - Final 11/16/19 23:35 Mucosa - Nasopharyngeal Respiratory Panel (PCR) - Final Clinical Impression(s) from Imaging Studies Brain MRI 11/17/19 01:48 IMPRESSION: 1. No MRI evidence of acute or subacute ischemic infarct. 2. 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 3. Chronic left maxillary sinusitis. Electronically Signed: Buddy Colón MD at 14:14 EDT , Service support , Head MRA 11/17/19 06:49 IMPRESSION: Limited MRA of the head due to motion degradation artifacts. No suspicious significant vaso-occlusive disease of the anterior and posterior circulation. Electronically Signed: Buddy Colón MD at 14:15 EDT , Service support , Neck MRA 11/17/19 10:46 IMPRESSION: Normal bilateral cervical carotid and vertebral arteries. Electronically Signed: Buddy Colón MD at 14:14 EDT , Service support , Chest X-Ray 11/18/19 04:38 IMPRESSION: No acute cardiopulmonary abnormality. at 0515 Reported and signed by: Kelsey Walter MD Electronically Signed: Kelsey Walter MD at 5:15 EDT Tel , Service support , Medical Necessity - Tobacco Use Smoking Status: Former smoker Assessment/Plan All Active Problems (Last Updated 11/17/19 @ 03:[address] Yandel Osborne MD) Lethargy (Acute) Bilateral pulmonary infiltrates on chest x-ray (Acute) Suspected COVID-19 virus infection (Acute) Respiratory failure (Acute) Acute encephalopathy (Acute) Lower extremity weakness (Acute) RECOMMENDATIONS: 1. Agree with continuing broad-spectrum antimicrobial coverage, pending infectious work-up. 2. Continue with aggressive bronchopulmonary hygiene such as NT suctioning as needed 3. Electrolyte repletion as ordered. 4. Continue scheduled Lasix and heparin drip. 5. Echocardiogram is pending. IMPRESSIONS: 1. Acute hypoxemic respiratory failure Differential would include healthcare associated pneumonia versus possible CHF. The patient is currently having difficulty clearing his airway of secretions. However, CODE STATUS was confirmed to be DNR CCA without intubation. Therefore, recommend continuing supplemental oxygen with a goal to maintain saturations at or above 90%. Continue aggressive bronchopulmonary hygiene, including NT suctioning as needed. Continue empiric antimicrobials. Patient significant improvement following NT suctioning would suggest upper airway secretions having a significant impact. Chest x-ray shows some improved infiltrates bilaterally. 2. Acute encephalopathy Possibly infectious in etiology. MRI was not suggestive of any acute ischemic process. ABG showed adequate ventilation, but elevated AA gradient. 3. Hypokalemia Additional electrolyte repletion as ordered. Could supplement with p.o. if patient is able to pass a spontaneous swallow study. 4. Anemia/coronary artery disease/heart failure/diabetes mellitus/hypothyroidism/hypertension/atrial fibrillation Complicates care, management, recovery and prognosis. Continue home medications as indicated. Inpatient E&M: [id number] [facility] [id number]
[2019-11-18 07:59] LABS: Magnesium 1.5 mg/dL (1.6-2.6)
[2019-11-18 09:53] LABS: Vitamin B12 454 pg/mL (211-911)
[2019-11-18] MEDS: Furosemide 40 MG/4 ML Vial IV ×2 (10:23→18:08)
[2019-11-18 12:40] LABS: Bedside Glucose 72 mg/dL (70-110)
--- NOTE | 2019-11-18 12:52 | PN_ITS ---
Patient Problems: Active and Suspected Problems (Last Updated 11/17/19 @ 03:[address] Yandel Osborne MD) Lethargy (Acute) Bilateral pulmonary infiltrates on chest x-ray (Acute) Suspected COVID-19 virus infection (Acute) Respiratory failure (Acute) Acute encephalopathy (Acute) Lower extremity weakness (Acute) Reason for Visit: encephalopathy Subjective: Still confused. Saying he is doing well. Vitals/I&O's: Vital Signs Temp Pulse Resp BP Pulse Ox 36.6 C 102 H 16 114/70 100 11/18/19 11:00 11/18/19 11:34 11/18/19 11:34 11/18/19 11:00 11/18/19 11:00 Oxygen Flow Rate (L/min) 2 Oxygen Delivery Method Nasal Cannula Weight: 96.5 kg Body Mass Index (BMI) 29.7 Finger Stick Blood Glucose 77 Intake and Output for Last 24 Hours 11/16/19 11/17/19 11/18/19 23:59 23:59 23:59 Intake Total 1903.51 / 1903.51 463.36 / 463.36 Output Total 4525 / 4525 725 / 725 Balance -25 / -25 -2621.49 / -2621.49 -261.64 / -261.64 General: Alert, Cooperative, No apparent distress HEENT: Atraumatic, Normocephalic Oral: Moist Mucosa, No Gingival or Mucosal Lesions/ Ulcerations Neck: No Nodes, Trachea Midline Lungs: Clear to auscultation, Normal air movement, No rhonchi, No wheeze, No rales Cardiovascular: Regular rate, Regular Rhythm, Normal S1, Normal S2, No murmurs Abdomen: Bowel Sounds Present, Soft, Non Tender, Non-Distended, No Hepato- splenomegaly Extremities: No Calf Tenderness, Edema Psych/Mental Status: Normal Affect, Appropriate Microbiology Past 72 Hours 11/17/19 09:45 Sputum, Induced/Lukens Gram Stain - Final 11/17/19 09:45 Sputum, Induced/Lukens Respiratory Culture - Preliminary Staphylococcus aureus 11/16/19 23:17 Urine Catheter - Catheter Urine Culture - Preliminary Culture exhibits no growth. 11/16/19 23:17 Urine, Clean Catch Legionella Antigen - Final 11/16/19 23:17 Urine, Clean Catch Streptococcus pneumoniae Antigen (M - Final 11/16/19 23:35 Mucosa - Nasopharyngeal Respiratory Panel (PCR) - Final Laboratory Results 11/16/19 23:35: COVID-19 (AFUA) Not Detected 11/17/19 06:48: Vitamin B12 454 11/17/19 12:37: Hemoglobin A1c 4.8 11/17/19 12:37: Troponin I < 0.015 11/17/19 14:20: APTT 162.3 H* 11/17/19 15:14: Troponin I < 0.015 11/17/19 16:59: POC Glucose 81 11/17/19 18:42: Troponin I 0.023 11/17/19 20:56: APTT 174.5 H* 11/17/19 23:50: POC Glucose 82 11/18/19 04:19: WBC 8.8, RBC 3.37 L, Hgb 10.1 L, Hct 32.0 L, MCV 95.0 H, MCH 30.0, MCHC 31.6 L D, RDW Std Deviation 49.5 H, RDW Coeff of Monica 14.5, Plt Count 208, MPV 9.6, Immature Gran % (Auto) 0.800, Neut % (Auto) 89.1 H, Lymph % (Auto) 4.1 L, [place] % (Auto) 5.2, Eos % (Auto) 0.6, Baso % (Auto) 0.2, Absolute Neuts (auto) 7.9 H, Absolute Lymphs (auto) 0.36 L, Nucleated RBC % 0, Differential Comment COMMENT 11/18/19 04:19: Sodium 144, Potassium 2.3 L*, Chloride 107, Carbon Dioxide 30.0, Anion Gap 7, BUN 22 H, Creatinine 0.96, Estim Creat Clear Calc 69.72, Est GFR (MDRD) Af Amer 98, Est GFR (MDRD) Non-Af 81, BUN/Creatinine Ratio 22.9 H, Glucose 80, Calcium 7.5 L, Total Bilirubin 0.50, AST 20, ALT 15 L, Alkaline Phosphatase 60, Total Protein 6.1 L, Albumin 2.4 L, Globulin 3.7, Albumin/Globulin Ratio 0.6 L 11/18/19 04:19: APTT 90.3 H* 11/18/19 04:19: Magnesium 1.5 L 11/18/19 05:06: POC Glucose 74 11/18/19 11:15: APTT 94.0 H* 11/18/19 12:00: POC Glucose 72 Current Medications Albuterol Sulfate (Ventolin Aerosols) 2.5 mg INHALATION Q2H PRN PRN PRN Reason: Dyspnea, wheezing Albuterol/Ipratropium (Duoneb) 3 ml INHALATION Q4HWA.RT [facility] Last Admin: 11/18/19 11:33 Dose: 3 ml Documented by: Dextrose (D50w Syringe) 0 gm IV X1 PRN; Protocol PRN Reason: Hypoglycemia Furosemide (Lasix) 40 mg IV BID@1000,1800 [facility] Last Admin: 11/18/19 10:23 Dose: 40 mg Documented by: Glucagon () 1 mg IM .X1 PRN PRN Reason: Hypoglycemia Heparin Sodium (Porcine) (Heparin Na) 0 unit IV UD PRN; Protocol Hydralazine HCl (Apresoline Iv) 5 mg IV Q30M PRN PRN Reason: to maintain BP goals Sodium Chloride () 250 mls @ 15 mls/hr IV .[id number] PRN PRN Reason: Saline Flush Sodium Chloride () 250 mls @ 15 mls/hr IV .[id number] PRN PRN Reason: Additional IVPB Infusion Piperacillin Sod/Tazobactam (Sod 3.375 gm/ Sodium Chloride) 50 mls @ 12.5 mls/hr IV Q8 [facility] Last Infusion: 11/18/19 09:10 Dose: Infused Documented by: Potassium Chloride () 10 meq in 100 mls @ 100 mls/hr IV BOLUS Q1H [facility] Stop: 11/18/19 16:59 Insulin Human Lispro (Humalog Kwikpen (Bkc)) 0 unit SC Q6 [facility]; Protocol Last Admin: 11/18/19 12:35 Dose: Not Given Documented by: Labetalol HCl (Trandate) 10 - 20 mg IV Q10M PRN PRN PRN Reason: to maintain BP goals Ondansetron HCl (Zofran) 4 mg IV Q8H PRN PRN PRN Reason: NAUSEA/VOMITING Sodium Chloride () 10 - 40 ml IV UD PRN PRN Reason: SALINE FLUSH Last Admin: 11/18/19 10:31 Dose: 10 ml Documented by: STROKE Vital Signs/Narrative: Vital Signs Temp Pulse Resp BP Pulse Ox 11/18/19 11:34 102 H 16 11/18/19 11:00 36.6 C 99 20 H 114/70 100 Medical Necessity - Tobacco Use Smoking Status: Former smoker Assessment/Plan All Active Problems (Last Updated 11/17/19 @ 03:[address] Yandel Osborne MD) Lethargy (Acute) Bilateral pulmonary infiltrates on chest x-ray (Acute) Suspected COVID-19 virus infection (Acute) Respiratory failure (Acute) Acute encephalopathy (Acute) Lower extremity weakness (Acute) 1. acute metabolic encephalopathy * improved * respiratory failure 2. acute hypoxic respiratory failure * improving * now on 3 Liter/m oxygen * bilateral pulmonary edema on CXR on the , improved today * CHF +/- pneumonia * COVID-19 negative 3. Pneumonia * staph aureus +/- gram negative * MRSA screen negative * on pip/tazo 4. acute HFpEF * EF 55%, mild pulmonary HTN * on IV furosemide 5. Dysphagia * NPO * ST eval 6. hypokalemia * replace 7. hypomagnesemia * replace 8. VTE prophylaxis: LMWH Inpatient E&M: 43745 Subs Hosp L2
--- NOTE | 2019-11-18 15:21 | CASEMGMT ---
Social Work Note Pt is listed as being from [facility]. SW reviewed notes, pt currently confused, and should be transferred down to PCU today. Pt's COVID test came back negative. ZOILA placed a call to pt's Odalys. Odalys confirms pt is from [facility] and the plan is for pt to return. ZOILA placed a call to [facility] and left message for admissions. ZOILA faxed updated clinicals to [facility]. Plan: Return to [facility] Cecy Ocampo MSW, [employer]
[2019-11-18 18:21] LABS: Bedside Glucose 100 mg/dL (70-110)
[2019-11-18 23:15] LABS: Bedside Glucose 71 mg/dL (70-110)
[2019-11-19] VITALS (16 sets, daily range): BP systolic 117–126; BP diastolic 69–88; PULSE 73–131; RESP 15–20; TEMP 36.4–37.1; O2SAT 93–98; BMI 29.7
[2019-11-19 05:41] LABS: Bedside Glucose 77 mg/dL (70-110)
[2019-11-19] MEDS: Ipratropium/Albuterol Sulfate 3 ML AMPUL.NEB INHALATION ×4 (06:38→19:08)
[2019-11-19 08:03] LABS: Absolute Lymphocyte Count 0.51 X10^3/uL (0.83-4.51); Absolute Neutrophil Count 6.3 X10^3/uL (2.0-7.7); Basophil# 0.03 X10^3/uL; Basophil% 0.4 % (0-1); Differential Indicated SCAN CRITERIA MET; Eosinophil# 0.04 X10^3/uL; Eosinophils% 0.5 % (0-5); Hemoglobin 11.1 g/dL (13.0-16.5); Lymphocyte # 0.51 X10^3/ul (4.0); Lymphocyte % 6.8 % (19-41); Mean Corp Hgb Conc 31.7 g/dL (32-36); Mean Corpuscular Hgb 30.2 pg (27.0-32.0); Mean Corpuscular Volume 95.1 fL (80-94); Mean Platelet Vol. 9.5 fl (6.2-12.0); Monocyte# 0.47 X10^3/uL; Monocyte% 6.3 % (0-10); NRBC Flagged by Analyzer 0 % (0-5); Neutrophil % 84.7 % (47-70); POSITIVE DIFFERENTIAL YES; Platelet Count 269 K/mm3 (150-450); RBC Distribution Width CV 14.3 % (11.6-14.6); RBC Distribution Width SD 49.9 fl (35.1-43.9); Red Blood Count 3.68 M/mm3 (4.6-6.2); White Blood Count 7.5 K/mm3 (4.4-11.0)
--- NOTE | 2019-11-19 08:12 | PN_ITS ---
Patient Problems: Active and Suspected Problems (Last Updated 11/17/19 @ 03:[address] Yandel Osborne MD) Lethargy (Acute) Bilateral pulmonary infiltrates on chest x-ray (Acute) Suspected COVID-19 virus infection (Acute) Respiratory failure (Acute) Acute encephalopathy (Acute) Lower extremity weakness (Acute) Subjective: Patient did well overnight. No acute issues were reported. Patient's mentation is much improved and he is now alert and oriented x3. Patient does report that he was having nightmares prior to being hospitalized. Patient states he is doing much better at this point. Patient is able to cough up secretions per his report. - Physical Exam Vitals/I&O's: Vital Signs Temp Pulse Resp BP Pulse Ox 36.6 C 73 18 120/77 94 11/19/19 03:30 11/19/19 05:40 11/19/19 05:40 11/19/19 03:30 11/19/19 05:40 Oxygen Flow Rate (L/min) 2 Oxygen Delivery Method Room Air Weight: 96.5 kg Body Mass Index (BMI) 29.7 Finger Stick Blood Glucose 77 Intake and Output for Last 24 Hours 11/17/19 11/18/19 11/19/19 23:59 23:59 23:59 Intake Total 1903.51 / 1903.51 1117.36 / 1117.36 50 / 50 Output Total 4525 / 4525 1025 / 1075 500 / 500 Balance -2621.49 / -2621.49 92.36 / 42.36 -450 / -450 General: Alert, Oriented x3, Cooperative, - - Mild conversational dyspnea. Obese. HEENT: Atraumatic, PERRLA, EOMI, Normocephalic, - - No scleral icterus or injection noted Oral: Moist Mucosa, No Gingival or Mucosal Lesions/ Ulcerations Neck: Supple, No JVD, No Nodes, Trachea Midline Lungs: No rhonchi, No wheeze, No rales, Diminished, - - Fair effort. Symmetric expansion. Cardiovascular: Regular rate, Regular Rhythm, Normal S1, Normal S2, No murmurs, No rub noted, No Gallop Abdomen: Bowel Sounds Present, Soft, Non Tender, Non-Distended Extremities: No clubbing, No cyanosis, Edema Skin: - - No change compared to previous Musculoskeletal: No Tenderness to Palpation of Joints or Extremities Lymphatic: No Cervical, Supraclavicular, or Inguinal Adenopathy Neurological: Cranial nerves II-XII grossly intact, Neuro grossly intact, Motor Exam 5/5 strength throughout Psych/Mental Status: Normal Affect, Appropriate Microbiology Past 72 Hours 11/17/19 09:45 Sputum, Induced/Lukens Gram Stain - Final 11/17/19 09:45 Sputum, Induced/Lukens Respiratory Culture - Final Staphylococcus aureus 11/16/19 23:17 Urine Catheter - Catheter Urine Culture - Preliminary Culture exhibits no growth. 11/16/19 23:17 Urine, Clean Catch Legionella Antigen - Final 11/16/19 23:17 Urine, Clean Catch Streptococcus pneumoniae Antigen (M - Final 11/16/19 23:35 Mucosa - Nasopharyngeal Respiratory Panel (PCR) - Final Laboratory Results 11/17/19 06:48: Vitamin B12 454 11/18/19 11:15: APTT 94.0 H* 11/18/19 12:00: POC Glucose 72 11/18/19 18:09: POC Glucose 100 11/18/19 23:07: POC Glucose 71 11/19/19 05:36: POC Glucose 77 11/19/19 07:50: WBC 7.5, RBC 3.68 L, Hgb 11.1 L, Hct 35.0 L, MCV 95.1 H, MCH 30.2, MCHC 31.7 L, RDW Std Deviation 49.9 H, RDW Coeff of Monica 14.3, Plt Count 269, MPV 9.5, Immature Gran % (Auto) 1.300 H, Neut % (Auto) 84.7 H, Lymph % (Auto) 6.8 L, [place] % (Auto) 6.3, Eos % (Auto) 0.5, Baso % (Auto) 0.4, Absolute Neuts (auto) 6.3, Absolute Lymphs (auto) 0.51 L, Nucleated RBC % 0 11/19/19 07:50: Sodium Pending, Potassium Pending, Chloride Pending, Carbon Dioxide Pending, Anion Gap Pending, BUN Pending, Creatinine Pending, Est GFR (MDRD) Af Amer Pending, Est GFR (MDRD) Non-Af Pending, BUN/Creatinine Ratio Pending, Glucose Pending, Calcium Pending, Magnesium Pending, Total Bilirubin Pending, AST Pending, ALT Pending, Alkaline Phosphatase Pending, Total Protein Pending, Albumin Pending Current Medications Albuterol Sulfate (Ventolin Aerosols) 2.5 mg INHALATION Q2H PRN PRN PRN Reason: Dyspnea, wheezing Albuterol/Ipratropium (Duoneb) 3 ml INHALATION Q4HWA.RT [facility] Last Admin: 11/19/19 06:38 Dose: 3 ml Documented by: Dextrose (D50w Syringe) 0 gm IV X1 PRN; Protocol PRN Reason: Hypoglycemia Furosemide (Lasix) 40 mg IV BID@1000,1800 [facility] Last Admin: 11/18/19 18:08 Dose: 40 mg Documented by: Glucagon () 1 mg IM .X1 PRN PRN Reason: Hypoglycemia Heparin Sodium (Porcine) (Heparin Na) 0 unit IV UD PRN; Protocol Hydralazine HCl (Apresoline Iv) 5 mg IV Q30M PRN PRN Reason: to maintain BP goals Sodium Chloride () 250 mls @ 15 mls/hr IV .[id number] PRN PRN Reason: Saline Flush Sodium Chloride () 250 mls @ 15 mls/hr IV .[id number] PRN PRN Reason: Additional IVPB Infusion Piperacillin Sod/Tazobactam (Sod 3.375 gm/ Sodium Chloride) 50 mls @ 12.5 mls/hr IV Q8 [facility] Last Admin: 11/19/19 05:41 Dose: 12.5 mls/hr Documented by: Insulin Human Lispro (Humalog Kwikpen (Bkc)) 0 unit SC Q6 [facility]; Protocol Last Admin: 11/19/19 05:41 Dose: Not Given Documented by: Labetalol HCl (Trandate) 10 - 20 mg IV Q10M PRN PRN PRN Reason: to maintain BP goals Ondansetron HCl (Zofran) 4 mg IV Q8H PRN PRN PRN Reason: NAUSEA/VOMITING Sodium Chloride () 10 - 40 ml IV UD PRN PRN Reason: SALINE FLUSH Last Admin: 11/18/19 10:31 Dose: 10 ml Documented by: Medical Necessity - Tobacco Use Smoking Status: Former smoker Assessment/Plan All Active Problems (Last Updated 11/17/19 @ 03:[address] Yandel Osborne MD) Lethargy (Acute) Bilateral pulmonary infiltrates on chest x-ray (Acute) Suspected COVID-19 virus infection (Acute) Respiratory failure (Acute) Acute encephalopathy (Acute) Lower extremity weakness (Acute) RECOMMENDATIONS: 1. Consider transition to p.o. antibiotics 2. Continue with aggressive bronchopulmonary hygiene such as NT suctioning as needed 3. Electrolyte repletion as ordered. 4. Continue scheduled Lasix. 5. Hemodynamically stable on room air. Will sign off from a critical care/pulmonary perspective IMPRESSIONS: 1. Acute hypoxemic respiratory failure Differential would include healthcare associated pneumonia versus possible CHF. The patient is currently having difficulty clearing his airway of secretions. However, CODE STATUS was confirmed to be DNR CCA without i ntubation. Therefore, recommend continuing supplemental oxygen with a goal to maintain saturations at or above 90%. Continue aggressive bronchopulmonary hygiene, including NT suctioning as needed. Patient appears to have an MSSA pneumonia. Patient significant improvement following NT suctioning would suggest upper airway secretions having a significant impact. Previous chest x- ray shows some improved infiltrates bilaterally. 2. Acute encephalopathy Improving. Possibly infectious in etiology. MRI was not suggestive of any acute ischemic process. ABG showed adequate ventilation, but elevated AA gradient. 3. Hypokalemia Additional electrolyte repletion as indicated. Could supplement with p.o. if patient is able to pass a spontaneous swallow study. 4. Anemia/coronary artery disease/heart failure/diabetes mellitus/hypothyroidism/hypertension/atrial fibrillation Complicates care, management, recovery and prognosis. Continue home medications as indicated. Inpatient E&M: 28123 [facility] Hosp L2
[2019-11-19 08:37] LABS: Differential Comment SCANNED; Red Cell Morphology NORM C+C NORMAL (NORM C&C)
[2019-11-19 08:38] LABS: ALB/GLOB Ratio 0.6 RATIO (0.9-2.4); AST(SGOT) 18 U/L (15-37); Alanine Aminotransfer ALT/SGPT 15 U/L (16-61); Albumin, Serum 2.4 g/dL (3.2-5.0); Alkaline Phosphatase 63 U/L (45-117); Anion Gap 10 (5-15); BUN 28 mg/dL (7-18); BUN/Creat Ratio 25.7 RATIO (10-20); Calcium,Total 8.1 mg/dL (8.5-10.1); Chloride 108 mmol/L (98-107); Creatinine, Serum 1.09 mg/dL (0.70-1.30); EST Glomerular Filtration Rate 70 mL/min (>60); Est Glom Filt Rate - Afr Amer 85 mL/min (>60); Estimated Creatinine Clearance 61.41 ml/min; Globulin 4.2 g/dL (2.2-4.2); Glucose 80 mg/dL (74-106); Magnesium 1.9 mg/dL (1.6-2.6); Protein, Total 6.6 g/dL (6.4-8.2); Sodium Level 146 mmol/L (136-145)
--- NOTE | 2019-11-19 09:16 | PN_ITS ---
Patient Problems: Active and Suspected Problems (Last Updated 11/17/19 @ 03:[address] Yandel Osborne MD) Lethargy (Acute) Bilateral pulmonary infiltrates on chest x-ray (Acute) Suspected COVID-19 virus infection (Acute) Respiratory failure (Acute) Acute encephalopathy (Acute) Lower extremity weakness (Acute) Reason for Visit: encephalopathy Subjective: Wants something to eat and drink. Vitals/I&O's: Vital Signs Temp Pulse Resp BP Pulse Ox 36.6 C 95 15 126/69 H 93 11/19/19 09:05 11/19/19 09:05 11/19/19 09:05 11/19/19 09:05 11/19/19 09:05 Oxygen Flow Rate (L/min) 2 Oxygen Delivery Method Room Air Weight: 96.5 kg Body Mass Index (BMI) 29.7 Finger Stick Blood Glucose 77 Intake and Output for Last 24 Hours 11/17/19 11/18/19 11/19/19 23:59 23:59 23:59 Intake Total 1903.51 / 1903.51 1117.36 / 1117.36 50 / 50 Output Total 4525 / 4525 1025 / 1075 500 / 500 Balance -2621.49 / -2621.49 92.36 / 42.36 -450 / -450 General: Alert, No apparent distress HEENT: Atraumatic, Normocephalic Oral: Moist Mucosa, No Gingival or Mucosal Lesions/ Ulcerations Neck: No Nodes, Trachea Midline Lungs: Clear to auscultation, Normal air movement, No rhonchi, No wheeze, No rales Cardiovascular: Regular rate, Regular Rhythm, Normal S1, Normal S2, No murmurs Abdomen: Bowel Sounds Present, Soft, Non Tender, Non-Distended, No Hepato- splenomegaly Extremities: No edema, No Calf Tenderness Skin: No rashes, No breakdown Microbiology Past 72 Hours 11/16/19 23:17 Urine Catheter - Catheter Urine Culture - Final Culture exhibits no growth. 11/17/19 09:45 Sputum, Induced/Lukens Gram Stain - Final 11/17/19 09:45 Sputum, Induced/Lukens Respiratory Culture - Final Staphylococcus aureus 11/16/19 23:17 Urine, Clean Catch Legionella Antigen - Final 11/16/19 23:17 Urine, Clean Catch Streptococcus pneumoniae Antigen (M - Final 11/16/19 23:35 Mucosa - Nasopharyngeal Respiratory Panel (PCR) - Final Laboratory Results 11/17/19 06:48: Vitamin B12 454 11/18/19 11:15: APTT 94.0 H* 11/18/19 12:00: POC Glucose 72 11/18/19 18:09: POC Glucose 100 11/18/19 23:07: POC Glucose 71 11/19/19 05:36: POC Glucose 77 11/19/19 07:50: WBC 7.5, RBC 3.68 L, Hgb 11.1 L, Hct 35.0 L, MCV 95.1 H, MCH 30.2, MCHC 31.7 L, RDW Std Deviation 49.9 H, RDW Coeff of Monica 14.3, Plt Count 269, MPV 9.5, Immature Gran % (Auto) 1.300 H, Neut % (Auto) 84.7 H, Lymph % (Auto) 6.8 L, [place] % (Auto) 6.3, Eos % (Auto) 0.5, Baso % (Auto) 0.4, Absolute Neuts (auto) 6.3, Absolute Lymphs (auto) 0.51 L, Nucleated RBC % 0, Differential Comment SCANNED, RBC Morphology NORM C+C 11/19/19 07:50: Sodium 146 H, Potassium 3.0 L, Chloride 108 H, Carbon Dioxide 28.0, Anion Gap 10, BUN 28 H, Creatinine 1.09, Estim Creat Clear Calc 61.41, Est GFR (MDRD) Af Amer 85, Est GFR (MDRD) Non-Af 70, BUN/Creatinine Ratio 25.7 H, Glucose 80, Calcium 8.1 L, Magnesium 1.9, Total Bilirubin 0.50, AST 18, ALT 15 L , Alkaline Phosphatase 63, Total Protein 6.6, Albumin 2.4 L, Globulin 4.2, Albumin/Globulin Ratio 0.6 L Current Medications Albuterol Sulfate (Ventolin Aerosols) 2.5 mg INHALATION Q2H PRN PRN PRN Reason: Dyspnea, wheezing Albuterol/Ipratropium (Duoneb) 3 ml INHALATION Q4HWA.RT [facility] Last Admin: 11/19/19 06:38 Dose: 3 ml Documented by: Dextrose (D50w Syringe) 0 gm IV X1 PRN; Protocol PRN Reason: Hypoglycemia Furosemide (Lasix) 40 mg IV BID@1000,1800 [facility] Last Admin: 11/18/19 18:08 Dose: 40 mg Documented by: Glucagon () 1 mg IM .X1 PRN PRN Reason: Hypoglycemia Heparin Sodium (Porcine) (Heparin Na) 0 unit IV UD PRN; Protocol Hydralazine HCl (Apresoline Iv) 5 mg IV Q30M PRN PRN Reason: to maintain BP goals Sodium Chloride () 250 mls @ 15 mls/hr IV .[id number] PRN PRN Reason: Saline Flush Sodium Chloride () 250 mls @ 15 mls/hr IV .[id number] PRN PRN Reason: Additional IVPB Infusion Piperacillin Sod/Tazobactam (Sod 3.375 gm/ Sodium Chloride) 50 mls @ 12.5 mls/hr IV Q8 [facility] Last Admin: 11/19/19 05:41 Dose: 12.5 mls/hr Documented by: Insulin Human Lispro (Humalog Kwikpen (Bkc)) 0 unit SC Q6 [facility]; Protocol Last Admin: 11/19/19 05:41 Dose: Not Given Documented by: Labetalol HCl (Trandate) 10 - 20 mg IV Q10M PRN PRN PRN Reason: to maintain BP goals Ondansetron HCl (Zofran) 4 mg IV Q8H PRN PRN PRN Reason: NAUSEA/VOMITING Sodium Chloride () 10 - 40 ml IV UD PRN PRN Reason: SALINE FLUSH Last Admin: 11/18/19 10:31 Dose: 10 ml Documented by: STROKE Vital Signs/Narrative: Vital Signs Temp Pulse Resp BP Pulse Ox 11/19/19 09:05 36.6 C 95 15 126/69 H 93 11/19/19 06:38 86 16 93 11/19/19 05:40 73 18 94 Medical Necessity - Tobacco Use Smoking Status: Former smoker Assessment/Plan All Active Problems (Last Updated 11/17/19 @ 03:[address] Yandel Osborne MD) Lethargy (Acute) Bilateral pulmonary infiltrates on chest x-ray (Acute) Suspected COVID-19 virus infection (Acute) Respiratory failure (Acute) Acute encephalopathy (Acute) Lower extremity weakness (Acute) 1. acute metabolic encephalopathy * improved * respiratory failure 2. acute hypoxic respiratory failure * improving * now room air * bilateral pulmonary edema on CXR on the , improved 11/17 * CHF +/- pneumonia * COVID-19 negative 3. Pneumonia * +MSSA * change to cefazolin 4. acute HFpEF * EF 55%, mild pulmonary HTN * on IV furosemide 5. Dysphagia * NPO * ST eval * may need barium swallow 6. hypokalemia * improved, but still low * continue to replace 7. hypomagnesemia * improved after replacement 8. VTE prophylaxis: LMWH 9. Disposition: pending ST ev. Eventually back to [place]. Inpatient E&M: 89229 Subs Hosp L2
[2019-11-19] MEDS: 0.9% Saline Lock 10 ML Syringe IV ×2 (09:23→17:12)
[2019-11-19] MEDS: Furosemide 40 MG/4 ML Vial IV ×2 (09:23→17:11)
[2019-11-19] MEDS: Levothyroxine 75 MCG Tablet PO (12:20)
[2019-11-19] MEDS: Enoxaparin 40 MG/0.4 ML Syringe SC (12:20)
[2019-11-19] MEDS: Sotalol Hydrochloride 80 MG Tablet PO ×2 (12:20→21:15)
[2019-11-19] MEDS: Carvedilol 12.5 MG Tablet PO ×2 (12:20→21:15)
[2019-11-19 12:41] LABS: Bedside Glucose 93 mg/dL (70-110)
[2019-11-19 17:01] LABS: Bedside Glucose 117 mg/dL (70-110)
--- NOTE | 2019-11-19 17:24 | SP.MBSS_ITS ---
PRIMARY / SECONDARY DIAGNOSIS: metabolic encephalopathy/pneumonia/dysphagia REFERRING PHYSICIAN: Dr. Pedroza CURRENT DIET: NPO, was consuming a regular texture/thin liquid diet prior to admission DENTITION: missing molars, reports recent extraction MENTAL STATUS: WFL for participation in MBS RESPIRATORY STATUS: oxygenating on room air, lung sounds reported to be diminished PREVIOUS MODIFIED BARIUM SWALLOW STUDY: n/a REASON FOR REFERRAL: Further assessment of oropharyngeal and pharyngoesophageal swallow function recommended d/t bedside findings suspicious for silent aspiration/pharyngeal residue/potential reflux MEDICAL HISTORY: Pt is a 74 y/o male SNF resident with a past medical history significant for Atrial fibrillation, systolic heart failure, CAD s/p CABGx4 who presented to [facility] from [facility] on 11/16/2019 d/t lethatgy/MS change, subsequently admitted for management of bilateral pulmonary infiltrates on chest x-ray, respiratory failure, acute encephalopathy & lower extremity weakness. STUDY FINDINGS: Patient participated in a Modified Barium Swallow (MBS) study on 11/19/2019. This study was recorded in the lateral view and images were sent to PACs for storage. The following consistencies were presented to this patient for analysis of oropharyngeal swallow function: honey thickened liquids and pudding. Results of the MBS are as follows: PENETRATION / ASPIRATION SCALE ([place]): 1 = does not enter airway 2 = enters airway/above vocal folds/ejected 3 = enters airway/above vocal folds/not ejected 4 = enters airway/contacts vocal folds/ejected 5 = enters airway/contacts vocal folds/not ejected 6 = enters airway/below vocal folds/ejected 7 = enters airway/below vocal folds/not ejected despite effort 8 = enters airway/below vocal folds/no effort PENETRATION / ASPIRATION SCALE (SCORE): 1. Thin liquid 5mL teaspoon: 8 silent aspiration 2. Thin liquid 5mL teaspoon: 8 silent aspiration, weak delayed throat clearing 1x 3. Thin liquid by cup: 8 silent aspiration 4. Thin liquid by cup chin tuck trialed 2x: limited view of the laryngeal vestibule d/t patient positioning w/ shoulder obstructing view, suspected improvement in airway protection and reduction in penetration/aspiration, but unable to confirm presence/absence of penetration/aspiration with use of chin tuck 5. [place] thickened liquid by cup: 3 *trace amount 6. [place] thickened liquid by cup: 3 *trace amount 7. Honey thickened liquid by cup: 1 8. Honey thickened liquid by cup: 1 9. Pudding 5mL teaspoon: 1 10. Pudding 5mL teaspoon: 1 11. Honey thickened liquid by cup: 1 12. [place] thickened liquid by cup: 1 Although penetration was not directly visualized under fluoroscopy, pharyngeal residue was visible on imaging between trials w/ trace contrast lining the anterior wall of the laryngeal vestibule w/ accumulation atop the vocal folds; attributed to penetration of pharyngeal residue 13. Cookie: 1 14. [place] thickened liquid by cup: 1 IMPRESSION ORAL PHASE CHARACTERIZED BY: - LABIAL SEAL: interlabial escape, no progression to anterior lip - TONGUE CONTROL DURING BOLUS MANIPULATION: escape to lateral buccal cavity/floor of mouth - BOLUS PREPARATION / MASTICATION: disorganized chewing/mashing with solid pieces of bolus unchewed - BOLUS TRANSPORT / LINGUAL MOTION: slowed tongue motion - ORAL RESIDUE: residue collection on oral structures posterior lingual surface PHARYNGEAL PHASE CHARACTERIZED BY: - INITIATION OF PHARYNGEAL SWALLOW: bolus head in valleculae at first hyoid excursion - SOFT PALATE ELEVATION: no bolus between soft palate and pharyngeal wall - LARYNGEAL ELEVATION: partial superior movement of thyroid cartilage/partial approximation of arytenoids cartilage to epiglottic petiole - ANTERIOR HYOID EXCURSION: trace anterior movement - EPIGLOTTIC MOVEMENT: complete epiglottic inversion - LARYNGEAL VESTIBULE CLOSURE AT HEIGHT OF SWALLOW: incomplete laryngeal vestibule closure with narrow column of air/contrast in laryngeal vestibule - PHARYNGEAL STRIPPING WAVE: pharyngeal stripping wave present / diminished - PHARYNGOESOPHAGEAL SEGMENT OPENING: partial distension and partial duration; partial obstruction of flow - TONGUE BASE RETRACTION: narrow column of contrast between tongue base and posterior pharyngeal wall - PHARYNGEAL RESIDUE: majority of contrast within or on pharyngeal structures ESOPHAGEAL PHASE CHARACTERIZED BY: - ESOPHAGEAL BOLUS CLEARANCE IN THE UPRIGHT POSITION: esophageal retention with retrograde flow below pharyngoesophageal segment (PES) EFFECTS OF TREATMENT STRATEGIES ATTEMPTED: - Chin tuck posture = limited view d/t patient positioning, shoulder obstructing view, suspected improvement in airway protection and reduction in penetration/aspiration, but unable to confirm - Cued expectoration = somewhat effective - Effort swallow = somewhat effective - Double swallow = effective - Liquid chaser = effective - Reduced bolus size = effective - Reduced rate of intake = effective INTERPRETATION OF RESULTS Patient presents with moderate to severe oropharyngeal dysphagia (R13.12) and mild pharyngoesophageal dysphagia (R13.14) marked by: - Slowed lingual motion for A-P bolus transit - Reduced lingual control resulting in premature pharyngeal bolus entry and subsequent suboptimal bolus location upon swallow onset - Thin liquid penetration noted prior to swallow onset with SILENT ASPIRATION of thin liquids - Chin tuck trialed but limited view of the laryngeal vestibule d/t patient positioning w/ shoulder obstructing view, suspected improvement in airway protection and reduction in penetration/aspiration, but unable to confirm presence/absence of penetration/aspiration with use of chin tuck - Penetration of nectar thickened liquids was noted inconsistently, penetration was a scant/trace amount - No laryngeal vestibule penetration evident with honey thickened liquids, but significant increased in pharyngeal residue retention post deglutition - Incomplete tongue base contact w/ posterior pharyngeal wall - Reduced pharyngeal contraction - Minimal anterior hyoid movement/reduced hyolaryngeal excursion resulting in incomplete epiglottic inversion and reduced duration of the pharyngoesophageal segment opening - Copious pharyngeal residue retention w/in the valleculae, aryepiglottic folds and pyriform sinuses along w/ trace lining the posterior pharyngeal wall - Although penetration was not directly visualized under fluoroscopy, pharyngeal residue was visible on imaging between trials w/ trace contrast lining the anterior wall of the laryngeal vestibule w/ accumulation atop the vocal folds - Effortful swallow was effective to increase posterior base of tongue movement to assist in clearance of vallecular/pharyngeal residue - Cued expectoration was somewhat effective in clearing contrast from the laryngeal vestibule/trachea - Noted tertiary contractions w/ retrograde bolus flow below the pharyngoesophageal segment - Patient was noted to silently aspirate thin liquids and is at high risk to aspirate w/ thicker viscosities d/t severity of residue retained within/on pharyngeal structures - Strict adherence to the below recommended aspiration precautions is necessary to reduce risks associated w/ aspiration RECOMMENDATIONS DIET TEXTURE RECOMMENDATIONS: - Pureed textures - [place] thickened liquids COMPENSATORY STRATEGIES RECOMMENDED: - Direct 1:1 supervision with meals - Provide frequent verbal cues to ensure use of strategies - Alternate small bites with small sips - Cue to swallow 2-3 times for each bite, follow with a small sip, cue to swallow 2-3 times for each sip, repeat SLOWLY [id number] - Must be seated upright at 90 degrees during meals/meds and remain upright for 30-60 minutes after intake - Cue to cough if wet vocal quality or frequent throat clearing is noted NEED FOR REPEAT MBS: Would strongly discourage advancement past nectar thickened liquids without completion of a repeat modified barium swallow study as this patient is a silent aspirator w/ reliance upon typical overt s/s aspiration found to be an unreliable gauge for performance/readiness for advancement NEED FOR SKILLED SPEECH-LANGUAGE INTERVENTION TARGETING DYSPHAGIA: - Assessment of diet tolerance w/ diet texture/liquid viscosity adjustment as necessary - Instruction re: rationale for current diet modifications and use of compensatory strategies to improve understanding of needs and ensure consistent adherence to same - Instruction w/ oropharyngeal strengthening exercises to facilitate improved lingual control, swallow onset timing, pharyngeal contraction/motility, laryngeal vestibule closure - Ongoing education re: importance of strict adherence to aspiration precautions as the patient is highly susceptible to further medical complications associated with aspiration pneumonia given the severity of deficits identified under fluoroscopy - Consider trials of thin liquid w/ chin tuck posture, only under direct AIRPLANE PILOT SUPERVISOR supervision and following thorough oral care ADDITIONAL COMMENTS/RECOMMENDATIONS: - Results and recommendations were discussed with the Patient immediately following MBS completion - Images were reviewed with the Patient following MBS completion for improve comprehension and patient buy in re: diet modifications and compensatory strategies/precautions recommended - Pt verbalized understanding and agreement with all recommendations and education provided - Recommendations and precautions/supervision needs were relayed to Betina MADRID [phone] following MBS conclusion w/ RN updating dry erase board in room to reflect current recommendations & RN to relay supervision needs to COMMERCIAL TRAILER TRUCK DRIVER - Nursing communication entered detailing the above precautions and stressed the need for reviewing same w/ COMMERCIAL TRAILER TRUCK DRIVER each shift to ensure carryover
[2019-11-19] MEDS: Insulin Lispro 100 UNIT/ML INSULN.PEN SC (23:40)
[2019-11-19 23:51] LABS: Bedside Glucose 187 mg/dL (70-110)
[2019-11-20] VITALS (14 sets, daily range): BP systolic 115–139; BP diastolic 77–97; PULSE 85–130; RESP 15–20; TEMP 36.2–36.7; O2SAT 94–97; BMI 29.7
[2019-11-20] MEDS: Enoxaparin 40 MG/0.4 ML Syringe SC (05:22)
[2019-11-20 05:24] LABS: Absolute Lymphocyte Count 0.56 X10^3/uL (0.83-4.51); Absolute Neutrophil Count 4.7 X10^3/uL (2.0-7.7); Basophil# 0.03 X10^3/uL; Basophil% 0.5 % (0-1); Eosinophil# 0.04 X10^3/uL; Eosinophils% 0.7 % (0-5); Hematocrit 31.5 % (40-54); Lymphocyte # 0.56 X10^3/ul (4.0); Lymphocyte % 9.7 % (19-41); Mean Corp Hgb Conc 31.7 g/dL (32-36); Mean Corpuscular Hgb 29.6 pg (27.0-32.0); Mean Corpuscular Volume 93.2 fL (80-94); Mean Platelet Vol. 9.6 fl (6.2-12.0); Monocyte# 0.44 X10^3/uL; Monocyte% 7.6 % (0-10); NRBC Flagged by Analyzer 0 % (0-5); Neutrophil # 4.67 X10^3/uL (2.7-7.7); Neutrophil % 80.5 % (47-70); POSITIVE DIFFERENTIAL YES; Platelet Count 254 K/mm3 (150-450); RBC Distribution Width CV 14.5 % (11.6-14.6); RBC Distribution Width SD 49.8 fl (35.1-43.9); Red Blood Count 3.38 M/mm3 (4.6-6.2); White Blood Count 5.8 K/mm3 (4.4-11.0)
[2019-11-20] MEDS: Levothyroxine 75 MCG Tablet PO (05:24)
[2019-11-20 05:26] LABS: Differential Indicated SCAN CRITERIA MET
[2019-11-20 05:52] LABS: ALB/GLOB Ratio 0.6 RATIO (0.9-2.4); AST(SGOT) 17 U/L (15-37); Alanine Aminotransfer ALT/SGPT 13 U/L (16-61); Albumin, Serum 2.3 g/dL (3.2-5.0); Alkaline Phosphatase 60 U/L (45-117); Anion Gap 6 (5-15); BUN 34 mg/dL (7-18); BUN/Creat Ratio 27.4 RATIO (10-20); Chloride 110 mmol/L (98-107); Creatinine, Serum 1.24 mg/dL (0.70-1.30); EST Glomerular Filtration Rate 60 mL/min (>60); Est Glom Filt Rate - Afr Amer 73 mL/min (>60); Estimated Creatinine Clearance 53.98 ml/min; Glucose 123 mg/dL (74-106); Potassium 3.2 mmol/L (3.5-5.1); Protein, Total 6.3 g/dL (6.4-8.2); Sodium Level 145 mmol/L (136-145)
[2019-11-20 05:56] LABS: Differential Comment SCANNED
[2019-11-20] MEDS: Ipratropium/Albuterol Sulfate 3 ML AMPUL.NEB INHALATION ×4 (06:54→18:46)
[2019-11-20 06:56] LABS: Bedside Glucose 120 mg/dL (70-110)
--- NOTE | 2019-11-20 08:04 | PN_ITS ---
Patient Problems: Active and Suspected Problems (Last Updated 11/17/19 @ 03:[address] Yandel Osborne MD) Lethargy (Acute) Bilateral pulmonary infiltrates on chest x-ray (Acute) Suspected COVID-19 virus infection (Acute) Respiratory failure (Acute) Acute encephalopathy (Acute) Lower extremity weakness (Acute) Reason for Visit: Follow-up on encephalopathy. Subjective: Patient was seen and examined. He is alert oriented x3. He is on pur?ed diet for dysphagia. Objective: Physical exam: General: Alert, No apparent distress, appears frail HEENT: Atraumatic, Normocephalic Oral: Moist Mucosa, No Gingival or Mucosal Lesions/ Ulcerations Neck: No Nodes, Trachea Midline Lungs: Clear to auscultation, Normal air movement, No rhonchi, No wheeze, No rales Cardiovascular: Regular rate, Regular Rhythm, Normal S1, Normal S2, No murmurs Abdomen: Bowel Sounds Present, Soft, Non Tender, Non-Distended, No Hepato- splenomegaly Extremities: No edema, No Calf Tenderness Skin: No rashes, No breakdown Vitals/I&O's: Vital Signs Temp Pulse Resp BP Pulse Ox 97.5 F L 93 15 115/78 96 11/20/19 05:03 11/20/19 07:25 11/20/19 05:03 11/20/19 05:03 11/20/19 05:03 Oxygen Flow Rate (L/min) 2 Oxygen Delivery Method Room Air Weight: 96.5 kg Body Mass Index (BMI) 29.7 Finger Stick Blood Glucose 77 Intake and Output for Last 24 Hours 11/18/19 11/19/19 11/20/19 23:59 23:59 23:59 Intake Total 1117.36 / 1117.36 950 / 950 200 / 200 Output Total 1025 / 1075 1250 / 1250 275 / 275 Balance 92.36 / 42.36 -300 / -300 -75 / -75 Microbiology Past 72 Hours 11/16/19 23:30 Blood Culture (Wb) - Anticubital Right Blood Culture - Preliminary No growth in 48 hours. 11/16/19 23:30 Blood Culture (Wb) - Left Forearm Blood Culture - Preliminary No growth in 48 hours. 11/16/19 23:17 Urine Catheter - Catheter Urine Culture - Final Culture exhibits no growth. 11/17/19 09:45 Sputum, Induced/Lukens Gram Stain - Final 11/17/19 09:45 Sputum, Induced/Lukens Respiratory Culture - Final Staphylococcus aureus Laboratory Results 11/19/19 07:50: Differential Comment SCANNED, RBC Morphology NORM C+C 11/19/19 07:50: Sodium 146 H, Potassium 3.0 L, Chloride 108 H, Carbon Dioxide 28.0, Anion Gap 10, BUN 28 H, Creatinine 1.09, Estim Creat Clear Calc 61.41, Est GFR (MDRD) Af Amer 85, Est GFR (MDRD) Non-Af 70, BUN/Creatinine Ratio 25.7 H, Glucose 80, Calcium 8.1 L, Magnesium 1.9, Total Bilirubin 0.50, AST 18, ALT 15 L , Alkaline Phosphatase 63, Total Protein 6.6, Albumin 2.4 L, Globulin 4.2, Albumin/Globulin Ratio 0.6 L 11/19/19 12:26: POC Glucose 93 11/19/19 16:48: POC Glucose 117 H 11/19/19 23:29: POC Glucose 187 H 11/20/19 05:09: POC Glucose 120 H 11/20/19 05:12: WBC 5.8, RBC 3.38 L, Hgb 10.0 L, Hct 31.5 L, MCV 93.2, MCH 29.6, MCHC 31.7 L, RDW Std Deviation 49.8 H, RDW Coeff of Monica 14.5, Plt Count 254, MPV 9.6, Immature Gran % (Auto) 1.000 H, Neut % (Auto) 80.5 H, Lymph % (Auto) 9.7 L, [place] % (Auto) 7.6, Eos % (Auto) 0.7, Baso % (Auto) 0.5, Absolute Neuts (auto) 4.7, Absolute Lymphs (auto) 0.56 L, Nucleated RBC % 0, Differential Comment SCANNED 11/20/19 05:12: Sodium 145, Potassium 3.2 L, Chloride 110 H, Carbon Dioxide 29.0, Anion Gap 6, BUN 34 H, Creatinine 1.24, Estim Creat Clear Calc 53.98, Est GFR (MDRD) Af Amer 73, Est GFR (MDRD) Non-Af 60, BUN/Creatinine Ratio 27.4 H, Glucose 123 H, Calcium 8.0 L, Total Bilirubin 0.40, AST 17, ALT 13 L, Alkaline Phosphatase 60, Total Protein 6.3 L, Albumin 2.3 L, Globulin 4.0, Albumin/Globulin Ratio 0.6 L Current Medications Albuterol Sulfate (Ventolin Aerosols) 2.5 mg INHALATION Q2H PRN PRN PRN Reason: Dyspnea, wheezing Albuterol/Ipratropium (Duoneb) 3 ml INHALATION Q4HWA.RT [facility] Last Admin: 11/20/19 06:54 Dose: 3 ml Documented by: Carvedilol (Coreg) 12.5 mg PO BID [facility] Last Admin: 11/19/19 21:15 Dose: 12.5 mg Documented by: Dextrose (D50w Syringe) 0 gm IV X1 PRN; Protocol PRN Reason: Hypoglycemia Enoxaparin Sodium (Lovenox) 40 mg SC DAILY@0600 [facility] Last Admin: 11/20/19 05:22 Dose: 40 mg Documented by: Furosemide (Lasix) 40 mg IV BID@1000,1800 [facility] Last Admin: 11/19/19 17:11 Dose: 40 mg Documented by: Glucagon () 1 mg IM .X1 PRN PRN Reason: Hypoglycemia Hydralazine HCl (Apresoline Iv) 5 mg IV Q30M PRN PRN Reason: to maintain BP goals Sodium Chloride () 250 mls @ 15 mls/hr IV .[id number] PRN PRN Reason: Saline Flush Sodium Chloride () 250 mls @ 15 mls/hr IV .[id number] PRN PRN Reason: Additional IVPB Infusion Piperacillin Sod/Tazobactam (Sod 3.375 gm/ Sodium Chloride) 50 mls @ 12.5 mls/hr IV Q8 [facility] Last Admin: 11/20/19 05:25 Dose: 12.5 mls/hr Documented by: Insulin Human Lispro (Humalog Kwikpen (Bkc)) 0 unit SC Q6 [facility]; Protocol Last Admin: 11/20/19 05:11 Dose: Not Given Documented by: Labetalol HCl (Trandate) 10 - 20 mg IV Q10M PRN PRN PRN Reason: to maintain BP goals Levothyroxine Sodium (Synthroid) 75 mcg PO DAILY@0600 [facility] Last Admin: 11/20/19 05:24 Dose: 75 mcg Documented by: Ondansetron HCl (Zofran) 4 mg IV Q8H PRN PRN PRN Reason: NAUSEA/VOMITING Potassium Chloride (K-Dur) 40 meq PO BIDCM [facility] Last Admin: 11/19/19 17:11 Dose: 40 meq Documented by: Sodium Chloride () 10 - 40 ml IV UD PRN PRN Reason: SALINE FLUSH Last Admin: 11/19/19 17:12 Dose: 20 ml Documented by: Sotalol HCl (Betapace (G)) 80 mg PO BID [facility] Last Admin: 11/19/19 21:15 Dose: 80 mg Documented by: STROKE Vital Signs/Narrative: Vital Signs Temp Pulse Resp BP Pulse Ox 11/20/19 07:25 93 11/20/19 05:03 97.5 F L 114 H 15 115/78 96 Medical Necessity - Tobacco Use Smoking Status: Former smoker Assessment/Plan All Active Problems (Last Updated 11/17/19 @ 03:[address] Yandel Osborne MD) Lethargy (Acute) Bilateral pulmonary infiltrates on chest x-ray (Acute) Suspected COVID-19 virus infection (Acute) Respiratory failure (Acute) Acute encephalopathy (Acute) Lower extremity weakness (Acute) 1. Acute metabolic encephalopathy, resolved We will continue to monitor 2. Acute hypoxic respiratory failure due to CHF and pneumonia Will COVID-19 negative Continue on IV Zosyn and Lasix IV 3. MSSA Pneumonia with possible aspiration Will switch to Augmentin 4. Acute HFpEF, EF 55%, mild pulmonary HTN Will continue on IV lasix 5. Dysphagia, on pureed diet ST following 6. Hypokalemia, improved Continue to replace 7. Hypomagnesemia, Mg 1.9, replaced, recheck in am 8. DVT PPx- Lovenox [place] Inpatient E&M: [id number] Subs Hosp L2
[2019-11-20] MEDS: Carvedilol 12.5 MG Tablet PO (09:13)
[2019-11-20] MEDS: Sotalol Hydrochloride 80 MG Tablet PO ×2 (09:13→22:16)
[2019-11-20] MEDS: Furosemide 40 MG/4 ML Vial IV (09:14)
[2019-11-20] MEDS: Insulin Lispro 100 UNIT/ML INSULN.PEN SC (11:27)
[2019-11-20 11:35] LABS: Bedside Glucose 154 mg/dL (70-110)
[2019-11-20 16:35] LABS: Magnesium 1.9 mg/dL (1.6-2.6)
[2019-11-20 17:06] LABS: Bedside Glucose 108 mg/dL (70-110)
[2019-11-20] MEDS: 0.9% Saline Lock 10 ML Syringe IV ×2 (18:14→21:10)
[2019-11-20] MEDS: Furosemide 20 MG/2 ML VIAL IV (18:14)
[2019-11-20] MEDS: Metoprolol Tartrate 5 MG/5 ML Vial IV (21:08)
[2019-11-20] MEDS: Carvedilol 25 MG Tablet PO (22:16)
[2019-11-20] MEDS: Amox/Clavulanate 875 MG Tablet PO (22:16)
[2019-11-21] VITALS (11 sets, daily range): BP systolic 118–136; BP diastolic 76–87; PULSE 85–119; RESP 16–20; TEMP 36.4–36.8; O2SAT 92–98
[2019-11-21 00:21] LABS: Bedside Glucose 145 mg/dL (70-110)
[2019-11-21 01:34] LABS: Rapid Plasmin Reagin (RPR) NONREACTIVE (NONREACTIVE)
[2019-11-21] MEDS: Levothyroxine 75 MCG Tablet PO (05:31)
[2019-11-21] MEDS: Enoxaparin 40 MG/0.4 ML Syringe SC (05:32)
[2019-11-21 05:55] LABS: Absolute Lymphocyte Count 0.66 X10^3/uL (0.83-4.51); Absolute Neutrophil Count 4.7 X10^3/uL (2.0-7.7); Basophil# 0.05 X10^3/uL; Basophil% 0.8 % (0-1); Eosinophil# 0.08 X10^3/uL; Eosinophils% 1.4 % (0-5); Hematocrit 34.1 % (40-54); Hemoglobin 10.8 g/dL (13.0-16.5); Lymphocyte # 0.66 X10^3/ul (4.0); Lymphocyte % 11.2 % (19-41); Mean Corp Hgb Conc 31.7 g/dL (32-36); Mean Corpuscular Hgb 30.3 pg (27.0-32.0); Mean Corpuscular Volume 95.5 fL (80-94); Mean Platelet Vol. 9.9 fl (6.2-12.0); Monocyte# 0.41 X10^3/uL; Monocyte% 6.9 % (0-10); NRBC Flagged by Analyzer 0 % (0-5); Neutrophil # 4.65 X10^3/uL (2.7-7.7); Neutrophil % 78.7 % (47-70); Platelet Count 262 K/mm3 (150-450); RBC Distribution Width CV 14.4 % (11.6-14.6); RBC Distribution Width SD 49.6 fl (35.1-43.9); Red Blood Count 3.57 M/mm3 (4.6-6.2); White Blood Count 5.9 K/mm3 (4.4-11.0)
[2019-11-21 06:20] LABS: Bedside Glucose 123 mg/dL (70-110)
[2019-11-21 06:27] LABS: ALB/GLOB Ratio 0.6 RATIO (0.9-2.4); AST(SGOT) 20 U/L (15-37); Alanine Aminotransfer ALT/SGPT 16 U/L (16-61); Albumin, Serum 2.5 g/dL (3.2-5.0); Alkaline Phosphatase 63 U/L (45-117); Anion Gap 7 (5-15); BUN 36 mg/dL (7-18); BUN/Creat Ratio 29.5 RATIO (10-20); Calcium,Total 8.7 mg/dL (8.5-10.1); Chloride 111 mmol/L (98-107); Creatinine, Serum 1.22 mg/dL (0.70-1.30); EST Glomerular Filtration Rate 61 mL/min (>60); Est Glom Filt Rate - Afr Amer 74 mL/min (>60); Estimated Creatinine Clearance 54.86 ml/min; Globulin 4.2 g/dL (2.2-4.2); Glucose 122 mg/dL (74-106); Magnesium 2.2 mg/dL (1.6-2.6); Potassium 3.4 mmol/L (3.5-5.1); Protein, Total 6.7 g/dL (6.4-8.2); Sodium Level 147 mmol/L (136-145)
[2019-11-21] MEDS: Ipratropium/Albuterol Sulfate 3 ML AMPUL.NEB INHALATION ×3 (07:09→19:36)
[2019-11-21] MEDS: Sotalol Hydrochloride 80 MG Tablet PO ×2 (09:14→22:19)
[2019-11-21] MEDS: Carvedilol 25 MG Tablet PO ×2 (09:14→22:19)
[2019-11-21] MEDS: Furosemide 20 MG/2 ML VIAL IV (09:14)
[2019-11-21] MEDS: Amox/Clavulanate 875 MG Tablet PO ×2 (09:14→22:19)
[2019-11-21] MEDS: 0.9% Saline Lock 10 ML Syringe IV ×3 (09:29→16:08)
[2019-11-21] MEDS: Potassium Chloride 10mEq/100mL 10 MEQ/100 ML IV.SOLN. 100 MEQ IV BOLUS ×2 (10:11→11:09)
[2019-11-21 11:40] LABS: Bedside Glucose 140 mg/dL (70-110)
--- NOTE | 2019-11-21 13:16 | CHAPLAIN ---
Type of Pastoral Visit _x__ Initial Visit ___ Follow-up Visit ___ On-call Visit ___ General Patient Visit ___ Spiritual Assessment ___ Family Conference ___ Bereavement ___ Rapid Response ___ Code Blue ___ Other (describe below) Pastoral Care Referral From _x__ Patient ___ Family ___ Nurse ___ Physician ___ Percussion Instrument Tuner ___ Human Resources Executive Assistant ___ Other (describe below) Sacrament/Intervention _x__ Active listening ___ Anointing ___ Mormon ___ Bereavement ___ Communion ___ Lexus exploration ___ _x__ Life review _x__ Prayer ___ Reconciliation ___ Sacrament of Sick _x__ Supportive presence ___ Wedding ___ Other (describe below) Pastoral Comments patient is very talkative and is given time to speak about his life, situation, and lexus; pt admits to having difficulty with hallucinations but also states that he is feeling better and had a really good night last night; pt says that he had a good laugh with his nurse and that did me a lot of good; pt welcomes visits and prayers for spiritual support
--- NOTE | 2019-11-21 13:26 | PCM.PN.HOSP ---
Patient Problems: Active and Suspected Problems (Last Updated 11/17/19 @ 03:[address] Yandel Osborne MD) Lethargy (Acute) Bilateral pulmonary infiltrates on chest x-ray (Acute) Suspected COVID-19 virus infection (Acute) Respiratory failure (Acute) Acute encephalopathy (Acute) Lower extremity weakness (Acute) Reason for Visit: Follow-up on encephalopathy. Subjective: Patient was seen and examined. No acute events. He feels improved Objective: Physical exam: General: Alert, No apparent distress, appears frail HEENT: Atraumatic, Normocephalic Oral: Moist Mucosa, No Gingival or Mucosal Lesions/ Ulcerations Neck: No Nodes, Trachea Midline Lungs: Clear to auscultation, Normal air movement, No rhonchi, No wheeze, No rales Cardiovascular: Regular rate, Regular Rhythm, Normal S1, Normal S2, No murmurs Abdomen: Bowel Sounds Present, Soft, Non Tender, Non-Distended, No Hepato-splenomegaly Extremities: No edema, No Calf Tenderness Skin: No rashes, No breakdown Vitals/I&O's: Vital Signs Temp Pulse Resp BP Pulse Ox 97.8 F 89 18 132/76 H 97 11/21/19 09:00 11/21/19 09:00 11/21/19 09:00 11/21/19 09:00 11/21/19 09:00 Oxygen Flow Rate (L/min) 2 Oxygen Delivery Method Room Air Weight: 96.5 kg Body Mass Index (BMI) 29.7 Finger Stick Blood Glucose 77 Intake and Output for Last 24 Hours 11/19/19 11/20/19 11/21/19 23:59 23:59 23:59 Intake Total 950 / 950 1078.75 / 1078.75 617.92 / 617.92 Output Total 1250 / 1250 850 / 850 500 / 500 Balance -300 / -300 228.75 / 228.75 117.92 / 117.92 Microbiology Past 72 Hours 11/16/19 23:30 Blood Culture (Wb) - Anticubital Right Blood Culture - Preliminary No growth in 48 hours. 11/16/19 23:30 Blood Culture (Wb) - Left Forearm Blood Culture - Preliminary No growth in 48 hours. 11/16/19 23:17 Urine Catheter - Catheter Urine Culture - Final Culture exhibits no growth. 11/17/19 09:45 Sputum, Induced/Lukens Gram Stain - Final 11/17/19 09:45 Sputum, Induced/Lukens Respiratory Culture - Final Staphylococcus aureus Laboratory Results 11/17/19 06:48: RPR NONREACTIVE 11/20/19 05:12: Magnesium 1.9 11/20/19 17:02: POC Glucose 108 11/21/19 00:13: POC Glucose 145 H 11/21/19 05:30: POC Glucose 123 H 11/21/19 05:48: WBC 5.9, RBC 3.57 L, Hgb 10.8 L, Hct 34.1 L, MCV 95.5 H, MCH 30.3, MCHC 31.7 L, RDW Std Deviation 49.6 H, RDW Coeff of Monica 14.4, Plt Count 262, MPV 9.9, Immature Gran % (Auto) 1.000 H, Neut % (Auto) 78.7 H, Lymph % (Auto) 11.2 L, [place] % (Auto) 6.9, Eos % (Auto) 1.4, Baso % (Auto) 0.8, Absolute Neuts (auto) 4.7, Absolute Lymphs (auto) 0.66 L, Nucleated RBC % 0 11/21/19 05:48: Sodium 147 H, Potassium 3.4 L, Chloride 111 H, Carbon Dioxide 29.0, Anion Gap 7, BUN 36 H, Creatinine 1.22, Estim Creat Clear Calc 54.86, Est GFR (MDRD) Af Amer 74, Est GFR (MDRD) Non-Af 61, BUN/Creatinine Ratio 29.5 H, Glucose 122 H, Calcium 8.7, Magnesium 2.2, Total Bilirubin 0.40, AST 20, ALT 16, Alkaline Phosphatase 63, Total Protein 6.7, Albumin 2.5 L, Globulin 4.2, Albumin/Globulin Ratio 0.6 L 11/21/19 11:26: POC Glucose 140 H Current Medications Albuterol Sulfate (Ventolin Aerosols) 2.5 mg INHALATION Q2H PRN PRN PRN Reason: Dyspnea, wheezing Albuterol/Ipratropium (Duoneb) 3 ml INHALATION Q4HWA.RT [facility] Last Admin: 11/21/19 11:15 Dose: Not Given Documented by: Amoxicillin/Clavulanate Potassium (Augmentin Tablet) 875 mg PO BID [facility] Last Admin: 11/21/19 09:14 Dose: 875 mg Documented by: Carvedilol (Coreg) 25 mg PO BID [facility] Last Admin: 11/21/19 09:14 Dose: 25 mg Documented by: Dextrose (D50w Syringe) 0 gm IV X1 PRN; Protocol PRN Reason: Hypoglycemia Enoxaparin Sodium (Lovenox) 40 mg SC DAILY@0600 [facility] Last Admin: 11/21/19 05:32 Dose: 40 mg Documented by: Furosemide (Lasix) 20 mg IV BID@1000,1800 [facility] Last Admin: 11/21/19 09:14 Dose: 20 mg Documented by: Glucagon () 1 mg IM .X1 PRN PRN Reason: Hypoglycemia Sodium Chloride () 250 mls @ 15 mls/hr IV .[id number] PRN PRN Reason: Saline Flush Last Admin: 11/21/19 10:08 Dose: 15 mls/hr Documented by: Sodium Chloride () 250 mls @ 15 mls/hr IV .[id number] PRN PRN Reason: Additional IVPB Infusion Insulin Human Lispro (Humalog Kwikpen (Bkc)) 0 unit SC Q6 [facility]; Protocol Last Admin: 11/21/19 11:27 Dose: Not Given Documented by: Levothyroxine Sodium (Synthroid) 75 mcg PO DAILY@0600 [facility] Last Admin: 11/21/19 05:31 Dose: 75 mcg Documented by: Metoprolol Tartrate (Lopressor (Beta Lc)) 5 mg IV Q1H PRN PRN PRN Reason: HR > 120 Last Admin: 11/20/19 21:08 Dose: 5 mg Documented by: Ondansetron HCl (Zofran) 4 mg IV Q8H PRN PRN PRN Reason: NAUSEA/VOMITING Potassium Chloride (K-Dur) [facility] Last Admin: 11/21/19 07:56 Dose: 40 meq Documented by: Sodium Chloride () 10 - 40 ml IV UD PRN PRN Reason: SALINE FLUSH Last Admin: 11/21/19 10:11 Dose: 10 ml Documented by: Sotalol HCl (Betapace (G)) 80 mg PO BID [facility] Last Admin: 11/21/19 09:14 Dose: 80 mg Documented by: Medical Necessity - Tobacco Use Smoking Status: Former smoker Assessment/Plan All Active Problems (Last Updated 11/17/19 @ 03:[address] Yandel Osborne MD) Lethargy (Acute) Bilateral pulmonary infiltrates on chest x-ray (Acute) Suspected COVID-19 virus infection (Acute) Respiratory failure (Acute) Acute encephalopathy (Acute) Lower extremity weakness (Acute) 1. Acute metabolic encephalopathy, resolved Continue to monitor 2. Acute hypoxic respiratory failure due to CHF and pneumonia, resolved COVID-19 negative; switched to augmentin and oral lasix 3. MSSA Pneumonia with possible aspiration Currently on Augmentin Will aim for 1 week total treatment 4. Acute HFpEF, EF 55%, mild pulmonary HTN, improved On oral lasix, will continue on CHF protocol 5. Dysphagia, on honey thickened diet, ST following 6. Hypokalemia, K 3.4 Will replace oral and IV 7. Hypomagnesemia, resolved 8. Hypernatremia secondary to dehydration/lack of access to free water Na 147, will start on d5w 75mls/hr x 1 liter Repeat blood work in am 8. DVT PPx- Lovenox [place] Inpatient E&M: [id number] Subs Hosp L2
[2019-11-21] MEDS: Acetaminophen 325 MG Tablet 650 MG PO (14:18)
[2019-11-21 17:15] LABS: Bedside Glucose 136 mg/dL (70-110)
[2019-11-21] MEDS: Furosemide 40 MG Tablet PO (18:58)
[2019-11-22] VITALS (11 sets, daily range): BP systolic 123–138; BP diastolic 78–92; PULSE 85–113; RESP 16–18; TEMP 36.4–36.7; O2SAT 94–97
[2019-11-22 00:05] LABS: Bedside Glucose 119 mg/dL (70-110)
[2019-11-22] MEDS: Enoxaparin 40 MG/0.4 ML Syringe SC (05:39)
[2019-11-22] MEDS: Levothyroxine 75 MCG Tablet PO (05:40)
[2019-11-22 05:55] LABS: Bedside Glucose 114 mg/dL (70-110)
[2019-11-22] MEDS: Ipratropium/Albuterol Sulfate 3 ML AMPUL.NEB INHALATION ×3 (07:05→14:58)
[2019-11-22 08:29] LABS: Absolute Lymphocyte Count 0.71 X10^3/uL (0.83-4.51); Absolute Neutrophil Count 4.9 X10^3/uL (2.0-7.7); Basophil# 0.04 X10^3/uL; Basophil% 0.6 % (0-1); Eosinophil# 0.12 X10^3/uL; Eosinophils% 1.9 % (0-5); Hematocrit 34.1 % (40-54); Hemoglobin 10.6 g/dL (13.0-16.5); Lymphocyte # 0.71 X10^3/ul (4.0); Lymphocyte % 11.5 % (19-41); Mean Corp Hgb Conc 31.1 g/dL (32-36); Mean Corpuscular Hgb 29.4 pg (27.0-32.0); Mean Corpuscular Volume 94.5 fL (80-94); Mean Platelet Vol. 9.7 fl (6.2-12.0); Monocyte# 0.34 X10^3/uL; Monocyte% 5.5 % (0-10); NRBC Flagged by Analyzer 0 % (0-5); Neutrophil % 79.2 % (47-70); Platelet Count 262 K/mm3 (150-450); RBC Distribution Width CV 14.5 % (11.6-14.6); RBC Distribution Width SD 50.3 fl (35.1-43.9); Red Blood Count 3.61 M/mm3 (4.6-6.2); White Blood Count 6.2 K/mm3 (4.4-11.0)
[2019-11-22 09:02] LABS: ALB/GLOB Ratio 0.6 RATIO (0.9-2.4); AST(SGOT) 25 U/L (15-37); Alanine Aminotransfer ALT/SGPT 16 U/L (16-61); Albumin, Serum 2.6 g/dL (3.2-5.0); Alkaline Phosphatase 63 U/L (45-117); Anion Gap 4 (5-15); BUN 32 mg/dL (7-18); BUN/Creat Ratio 29.1 RATIO (10-20); Calcium,Total 8.4 mg/dL (8.5-10.1); Chloride 109 mmol/L (98-107); EST Glomerular Filtration Rate 69 mL/min (>60); Est Glom Filt Rate - Afr Amer 84 mL/min (>60); Estimated Creatinine Clearance 60.85 ml/min; Glucose 118 mg/dL (74-106); Potassium 3.5 mmol/L (3.5-5.1); Protein, Total 6.6 g/dL (6.4-8.2); Sodium Level 145 mmol/L (136-145)
[2019-11-22] MEDS: Amox/Clavulanate 875 MG Tablet PO (09:39)
[2019-11-22] MEDS: Furosemide 40 MG Tablet PO ×2 (09:39→16:15)
[2019-11-22] MEDS: Sotalol Hydrochloride 80 MG Tablet PO (09:39)
[2019-11-22] MEDS: Carvedilol 25 MG Tablet PO (09:39)
[2019-11-22] MEDS: Acetaminophen 325 MG Tablet 650 MG PO (09:40)
--- NOTE | 2019-11-22 11:19 | PCM.TXEXTCAR ---
- Diet 11/19/19 15:49 Diet: Cardiac/Low Cholesterol Food consistency:: Puree Liquid Consistency:: Honey Thick Is pt able to select menu?: No Diet Comments: 1:1 Supervision - see nursing communication for precautions - Routine Orders/Code Status Keep PO Greater than or Equal to (%): 94 - Encourage use of incentive spirometer Routine Lab Work: CBC - within 3 days, BMP - within 3 days Code Status: DNRCC-A - Therapies Weight Bearing: Weight bearing as tolerated Physical Therapy: Eval and Treat Occupational Therapy: Eval and Treat Speech Therapy: Eval and Treat - Allergies/Procedures Done in Hospital Allergies/Adverse Reactions: Allergies No Known Allergies Allergy (Verified 11/16/19 22:55) Procedures: None - Type of Care/Length of Stay Estimated LOS: Convalescent Care Less Than 30 days Type of Care Needed: Skilled Rehab Potential: Good Prognosis: Good - Additional Orders/Day of Discharge Additional Orders: Daily weights, low salt, low fat, CHF protocol Day of Discharge: 11/22/19 - Dietary and Speech Recommendations Dietitian Recommendations/Changes: Continue Cardiac/low sodium with fluid restriction as needed; texture/consistency modifications as per GENERAL DENTIST/OWNER. If PO intake declines at meals, recommend regular diet. - Follow Up Care Primary Care Physician: Mike Monique MD [Primary Care Provider] - Please follow up with your Primary Care Physician in: within 1-2 weeks
--- NOTE | 2019-11-22 11:22 | PCM.DC.SUM ---
Discharge Date and Diagnosis Date of Admission: 11/17/19 Date of Discharge: 11/22/19 - Primary Discharge Diagnosis Active and Suspected Problems (Last Updated 11/17/19 @ 03:[address] Yandel Osborne MD) Acute metabolic encephalopathy Acute hypoxic respiratory failure, Acute COVID-19 ruled out Acute HFpEF, EF 55%, MSSA pneumonia with possible aspiration Dysphagia Hypokalemia Hypomagnesemia Hypernatremia Hospital Course and Treatment Imaging Results: Clinical Impression(s) from Imaging Studies Brain CT 11/16/19 22:40 IMPRESSION: No acute intracranial abnormality. Chronic involutional and white matter changes. Individualized dose optimization techniques were used for this CT. at 2300 Reported and signed by: Kelsey Walter MD Electronically Signed: Kelsey Walter MD at 23:00 EDT Tel , Service support , ADDENDUM: 11/16/19 2308 IMPRESSION: No acute intracranial abnormality. Chronic involutional and white matter changes. Individualized dose optimization techniques were used for this CT. at 2300 Reported and signed by: Kelsey Walter MD N.B. : The above information has been verbally conveyed by Kelsey Walter MD to Dr. Haseeb Ibarra MD, on 11/16/2019 23:01:48 (ET). Electronically Signed: Kelsey Walter MD at 23:00 EDT Tel , Service support , Chest X-Ray 11/16/19 23:10 IMPRESSION: Bilateral pleural effusions. Bilateral pulmonary opacities may be related to asymmetric edema, pneumonia and/or atelectasis. at 0010 Reported and signed by: Kelsey Walter MD Electronically Signed: Kelsey Walter MD at 0:10 EDT Tel , Service support , Brain MRI 11/17/19 01:48 IMPRESSION: 1. No MRI evidence of acute or subacute ischemic infarct. 2. 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 3. Chronic left maxillary sinusitis. Electronically Signed: Buddy Colón MD at 14:14 EDT , Service support , Head MRA 11/17/19 06:49 IMPRESSION: Limited MRA of the head due to motion degradation artifacts. No suspicious significant vaso-occlusive disease of the anterior and posterior circulation. Electronically Signed: Buddy Colón MD at 14:15 EDT , Service support , Neck MRA 11/17/19 10:46 IMPRESSION: Normal bilateral cervical carotid and vertebral arteries. Electronically Signed: Buddy Colón MD at 14:14 EDT , Service support , Chest X-Ray 11/18/19 04:38 IMPRESSION: No acute cardiopulmonary abnormality. at 0515 Reported and signed by: Kelsey Walter MD Electronically Signed: Kelsey Walter MD at 5:15 EDT Tel , Service support , Pulmonology Operations: None Procedures: 2-D Echocardiogram Summary of Care Provided: The patient is a 74 year old M with past medical history of CAD status post CABG, chronic systolic CHF, resident in a shelter who presented with progressive lethargy that started on the day of admission. This was associated with worsening hallucination. Patient was admitted because the paramedics felt the patient was having a stroke. On admission, his chest x-ray showed bilateral pulmonary opacity and bilateral pleural effusion which is concerning for possible CO VID. Patient was reportedly saturating 80% on room air, requiring use of Venturi mask. He was managed as pneumonia. COVID?19 was ruled out. Respiratory panel was negative. Patient also received management for acute on chronic systolic CHF. He continued to progress and was off oxygen at time of discharge. [facility]. He will complete 1 week of antibiotics with Augmentin. His heart rate was slightly uncontrolled on the day of admission. Changes were made to his dictations with carvedilol switched to metoprolol. Patient will follow-up in the outpatient with his primary assistant finance manager. This was discussed with the patient and his . Subjective: On the day of discharge, patient was seen and examined. Objective: Physical exam: General: Alert, No apparent distress, appears frail HEENT: Atraumatic, Normocephalic Oral: Moist Mucosa, No Gingival or Mucosal Lesions/ Ulcerations Neck: No Nodes, Trachea Midline Lungs: Clear to auscultation, Normal air movement, No rhonchi, No wheeze, No rales Cardiovascular: Regular rate, Regular Rhythm, Normal S1, Normal S2, No murmurs Abdomen: Bowel Sounds Present, Soft, Non Tender, Non-Distended, No Hepato-splenomegaly Extremities: No edema, No Calf Tenderness Skin: No rashes, No breakdown - Physical Exam Vitals/I&O's: Vital Signs Temp Pulse Resp BP Pulse Ox 97.8 F 106 H 17 123/92 H 94 11/22/19 09:20 11/22/19 09:20 11/22/19 09:20 11/22/19 09:20 11/22/19 09:20 Oxygen Flow Rate (L/min) 2 Oxygen Delivery Method Room Air Weight: 96.5 kg Body Mass Index (BMI) 29.7 Finger Stick Blood Glucose 77 Intake and Output for Last 24 Hours 11/20/19 11/21/19 11/22/19 23:59 23:59 23:59 Intake Total 1078.75 / 1078.75 1800.42 / 1800.42 467.5 / 467.5 Output Total 850 / 850 700 / 700 Balance 228.75 / 228.75 1100.42 / 1100.42 467.5 / 467.5 Microbiology Past 72 Hours 11/16/19 23:30 Blood Culture (Wb) - Anticubital Right Blood Culture - Final No growth in 5 days. 11/16/19 23:30 Blood Culture (Wb) - Left Forearm Blood Culture - Final No growth in 5 days. 11/16/19 23:17 Urine Catheter - Catheter Urine Culture - Final Culture exhibits no growth. 11/17/19 09:45 Sputum, Induced/Lukens Gram Stain - Final 11/17/19 09:45 Sputum, Induced/Lukens Respiratory Culture - Final Staphylococcus aureus Laboratory Results 11/21/19 11:26: POC Glucose 140 H 11/21/19 16:10: POC Glucose 136 H 11/22/19 00:02: POC Glucose 119 H 11/22/19 05:38: POC Glucose 114 H 11/22/19 08:10: WBC 6.2, RBC 3.61 L, Hgb 10.6 L, Hct 34.1 L, MCV 94.5 H, MCH 29.4, MCHC 31.1 L, RDW Std Deviation 50.3 H, RDW Coeff of Monica 14.5, Plt Count 262, MPV 9.7, Immature Gran % (Auto) 1.300 H, Neut % (Auto) 79.2 H, Lymph % (Auto) 11.5 L, Ingham % (Auto) 5.5, Eos % (Auto) 1.9, Baso % (Auto) 0.6, Absolute Neuts (auto) 4.9, Absolute Lymphs (auto) 0.71 L, Nucleated RBC % 0 11/22/19 08:10: Sodium 145, Potassium 3.5, Chloride 109 H, Carbon Dioxide 32.0, Anion Gap 4 L, BUN 32 H, Creatinine 1.10, Estim Creat Clear Calc 60.85, Est GFR (MDRD) Af Amer 84, Est GFR (MDRD) Non-Af 69, BUN/Creatinine Ratio 29.1 H, Glucose 118 H, Calcium 8.4 L, Total Bilirubin 0.40, AST 25, ALT 16, Alkaline Phosphatase 63, Total Protein 6.6, Albumin 2.6 L, Globulin 4.0, Albumin/Globulin Ratio 0.6 L Current Medications Acetaminophen (Tylenol) 650 mg PO Q6H PRN PRN PRN Reason: Pain Score 4-10/10 Last Admin: 11/22/19 09:40 Dose: 650 mg Documented by: Albuterol Sulfate (Ventolin Aerosols) 2.5 mg INHALATION Q2H PRN PRN PRN Reason: Dyspnea, wheezing Albuterol/Ipratropium (Duoneb) 3 ml INHALATION Q4HWA.RT [facility] Last Admin: 11/22/19 11:09 Dose: 3 ml Documented by: Amoxicillin/Clavulanate Potassium (Augmentin Tablet) 875 mg PO BID [facility] Last Admin: 11/22/19 09:39 Dose: 875 mg Documented by: Carvedilol (Coreg) 25 mg PO BID [facility] Last Admin: 11/22/19 09:39 Dose: 25 mg Documented by: Dextrose (D50w Syringe) 0 gm IV X1 PRN; Protocol PRN Reason: Hypoglycemia Enoxaparin Sodium (Lovenox) 40 mg SC DAILY@0600 [facility] Last Admin: 11/22/19 05:39 Dose: 40 mg Documented by: Furosemide (Lasix) 40 mg PO BID@1000,1800 [facility] Last Admin: 11/22/19 09:39 Dose: 40 mg Documented by: Glucagon () 1 mg IM .X1 PRN PRN Reason: Hypoglycemia Sodium Chloride () 250 mls @ 15 mls/hr IV .[id number] PRN PRN Reason: Saline Flush Last Infusion: 11/21/19 12:08 Dose: 0 mls/hr Documented by: Sodium Chloride () 250 mls @ 15 mls/hr IV .[id number] PRN PRN Reason: Additional IVPB Infusion Insulin Human Lispro (Humalog Kwikpen (Bkc)) 0 unit SC Q6 [facility]; Protocol Last Admin: 11/22/19 05:39 Dose: Not Given Documented by: Levothyroxine Sodium (Synthroid) 75 mcg PO DAILY@0600 [facility] Last Admin: 11/22/19 05:40 Dose: 75 mcg Documented by: Metoprolol Tartrate (Lopressor (Beta Lc)) 5 mg IV Q1H PRN PRN PRN Reason: HR > 120 Last Admin: 11/20/19 21:08 Dose: 5 mg Documented by: Ondansetron HCl (Zofran) 4 mg IV Q8H PRN PRN PRN Reason: NAUSEA/VOMITING Pot[facility] Admin: 11/22/19 07:49 Dose: 40 meq Documented by: Sodium Chloride () 10 - 40 ml IV UD PRN PRN Reason: SALINE FLUSH Last Admin: 11/21/19 16:08 Dose: 10 ml Documented by: Sotalol HCl (Betapace (G)) 80 mg PO BID [facility] Last Admin: 11/22/19 09:39 Dose: 80 mg Documented by: Discharge Diet: Low fat/ Low Cholesterol, 2000 mg Sodium Diet Discharge Activity: Return to Normal Activity Home Medications: Medications to take at Discharge Aripiprazole [Abilify] 5 mg PO DAILY 11/16/19 Ascorbic Acid 500 mg PO DAILY 11/16/19 Aspirin [Aspirin, Baby] 81 mg PO DAILY@0800 11/16/19 Fenofibrate 67 mg PO DAILY 11/16/19 Ferrous Sulfate 325 mg PO DAILY 11/16/19 Glimepiride 1 mg PO DAILY 11/16/19 Levothyroxine [Synthroid] 75 mcg PO DAILY 11/16/19 Lisinopril [Zestril] 10 mg PO DAILY 11/16/19 Magnesium l-Lactate [Magnesium l-Lactate Dihyd Sr] 84 mg PO 4X/DAY 11/16/19 Multivitamin [Once Daily] 1 ea PO DAILY 11/16/19 Potassium Chloride 40 meq PO BID 11/16/19 Rivaroxaban [Xarelto] 15 mg PO DAILY 11/16/19 Sertraline HCl [Zoloft] 100 mg PO DAILY 11/16/19 Sotalol HCl [Sotalol] 80 mg PO BID 11/16/19 Acetaminophen [Tylenol Tablet] 650 mg PO Q6H PRN PRN tab 11/22/19 Albuterol Aerosols [Ventolin Aerosols] 2.5 mg INHALATION Q2H PRN PRN vial.neb. 11/22/19 Amox/Clavulanate Tablet [Augmentin Tablet] 875 mg PO BID 2 Days #4 tab 11/22/19 Furosemide [Lasix] 40 mg PO BID@1000,1800 #0 tab 11/22/19 Ipratropium/Albuterol Sulfate [Duoneb] 3 ml INHALATION Q4HWA.RT ampul.neb 11/22/19 Metoprolol Tartrate [Lopressor (beta lc)] 100 mg PO BID #0 tab 11/22/19 Sennosides/Docusate Sodium [Senna Plus Tablet] 1 ea PO BID #0 11/22/19 Following Prescrptions Were Given to Patient: Amox/Clavulanate Tablet [Augmentin Tablet] 875 mg PO BID 2 Days #4 tab Primary Care Physician: Mike Monique MD [Primary Care Provider] - Please follow up with your Primary Care Physician in: within 1-2 weeks Disposition: [facility] facility Minutes spent on discharge:: 40 Patient Condition:: Stable Medical Necessity - Tobacco Use Smoking Status: Former smoker Tobacco Use: Non-smoker Meaningful Use Info Meaningful Use Diagnoses (Choose all that apply): CHF - CHF KARIN/ARB ordered at discharge?: Yes Documented LVEF (%): 55 Inpatient E&M: 24191 Disch Hosp
[2019-11-22 11:30] LABS: Bedside Glucose 92 mg/dL (70-110)
--- NOTE | 2019-11-22 12:06 | CASEMGMT ---
Patient is ready for discharge back to [place]. Physician asked to make transport for later in the day as she would like to watch his heart rate. SW called [facility] and arranged for patient to get picked up at 5p via cot. SW called [facility] and spoke with patient's RN, Wendy. SW let her know d/c and berry picker time. SW also called patient's letting her know about d/c and berry picker time. SW will fax orders once they are completed. Mary SANTOS MSW
--- NOTE | 2019-11-22 12:15 | EKG12_ITS ---
Test Reason : ROUTINE Blood Pressure : / mmHG Vent. Rate : 112 BPM Atrial Rate : 112 BPM P-R Int : 106 ms QRS Dur : 096 ms QT Int : 368 ms P-R-T Axes : 000 -37 015 degrees QTc Int : 502 ms Sinus tachycardia with short UT Left axis deviation ST & T wave abnormality, consider anterolateral ischemia Abnormal ECG Confirmed by ALIZA BALDWIN, STEPHANIE ([id number]), sound editor JESUS YIN ([id number]) on 11/26/2019 11:40:58 AM Referred By: FELIPE Confirmed By:STEPHANIE ABRAMS MD
--- NOTE | 2019-11-22 13:47 | CASEMGMT ---
ZOILA received a call from Vikas at [facility]. ZOILA updated him on d/c and also faxed updates to him per his request. Await orders to fax to [place]. Mary SANTOS MSW
[2019-11-22] MEDS: Metoprolol Tartrate 5 MG/5 ML Vial IV (13:51)
[2019-11-22] MEDS: 0.9% Saline Lock 10 ML Syringe IV (13:53)
--- NOTE | 2019-11-22 14:29 | CASEMGMT ---
ZOILA faxed orders to both fax numbers at [place]. Plan: d/c back to [place] under skilled level of care. [facility] transported him via cot. Mary SANTOS MSW
--- NOTE | 2019-11-22 16:08 | NURSING ---
report called to [place] nurse Nguyen at 1602. Informed of need to f/u with plate shear operator in 2wks.
== END 2019-11-22 17:14 | disposition skilled nursing facility (03) | DRG 177 ==
LOC: ED 11-17 00:49 → MS2 11-17 05:09 → PCU 11-18 15:25
PROVIDERS: Family Medicine; Admitting Provider Hospitalist; Emergency Provider Emergency Medicine; PCP Family Medicine; Visit Provider Internal Medicine
DX: J15.211 Pneumonia due to Methicillin susceptible Staphylococcus aureus (principal); J96.01 Acute respiratory failure with hypoxia; G93.41 Metabolic encephalopathy; I50.23 Acute on chronic systolic (congestive) heart failure; E87.0 Hyperosmolality and hypernatremia; J69.0 Pneumonitis due to inhalation of food and vomit; I25.10 Atherosclerotic heart disease of native coronary artery without angina pectoris; I11.0 Hypertensive heart disease with heart failure; I48.0 Paroxysmal atrial fibrillation; E11.9 Type 2 diabetes mellitus without complications; R13.10 Dysphagia, unspecified; Z95.1 Presence of aortocoronary bypass graft; Z79.01 Long term (current) use of anticoagulants; E03.9 Hypothyroidism, unspecified; D50.9 Iron deficiency anemia, unspecified; E78.5 Hyperlipidemia, unspecified; I27.20 Pulmonary hypertension, unspecified; E83.42 Hypomagnesemia; F32.9 Major depressive disorder, single episode, unspecified; F41.9 Anxiety disorder, unspecified; E87.6 Hypokalemia; Z66 Do not resuscitate; Z87.891 Personal history of nicotine dependence; Z86.73 Personal history of transient ischemic attack (TIA), and cerebral infarction without residual deficits; Z79.890 Hormone replacement therapy
CPT/HCPCS: 31720; 36415; 36600; 51702; 70450; 70544; 70547; 70551; 71045; 74230; 80048; 80053; 80061; 81001; 82607; 82728; 82803; 82962; 83036; 83605; 83615; 83735; 83880; 84145; 84439; 84443; 84484; 85025; 85610; 85730; 86140; 86592; 87040; 87070; 87077; 87086; 87186; 87205; 87449; 87633; 87635; 87641; 92526; 92610; 92611; 93005; 93306; 94640; 94667; 94668; 96365; 96368; 96375; 97110; 97163; 97166; 97530; 97535; 97802; 99251; 99285; G2023; J7040; J7050; A4216; G0463; J1940; J7799; U0004